=== PATIENT | female | born 1945 | race Caucasian/White ===

== ENCOUNTER 2016-04-21 06:24 | Day surgery (SDC) | payer MEDICARE, OTHER ==
[2016-04-21] MEDS ORDERED: MIDAZOLAM 2 MG/2 ML INJ ONE ×2 (06:42)
[2016-04-21] MEDS ORDERED: FENTANYL CITRATE INJ/PF 100 MCG/2 ML AMPUL ONE (06:42)
[2016-04-21] MEDS ORDERED: ONDANSETRON HCL INJ/PF 4 MG/2 ML SDV ONE (06:43)
[2016-04-21] MEDS ORDERED: SUCCINYLCHOLINE CHLORIDE INJ 200 MG/10 ML VIAL ONE (06:43)
[2016-04-21] MEDS ORDERED: LIDOCAINE 2% INJ-PF (20 MG/ML) 10 ML AMPUL ONE (06:43)
[2016-04-21] MEDS ORDERED: PROPOFOL INJ 200 MG/20 ML VIAL IV ONE (06:43)
[2016-04-21] MEDS ORDERED: LIDOCAINE 2%/EPINEPHRINE INJ 20 ML VIAL ONE (07:14)
[2016-04-21] MEDS ORDERED: BUPIVACAINE HCL 0.75% INJ/PF (7.5 MG/1 ML) 10 ML SDV ONE (07:14)
[2016-04-21] MEDS ORDERED: THROMBIN (BOVINE) TOPICAL 5000 UNIT VIAL ONE (07:15)
[2016-04-21] MEDS ORDERED: TETRACAINE HCL 0.5% OPH SOLN 2 ML ONE (07:15)
[2016-04-21] MEDS ORDERED: TOBRAMYCIN SULFATE/DEXAMETH OPH OINTMENT 3.5 GM ONE (07:15)
[2016-04-21] MEDS ORDERED: POVIDONE-IODINE 5% OPH PREP SOLN 30 ML ONE (07:15)
[2016-04-21] MEDS: NEO/POLYMYX B SULF/DEXAMETH OPH OINTMENT 3.5 GM ONE ×2 (08:18)
--- NOTE | 2016-04-21 08:53 | SURGICARE DISCHARGE SUMMARY E ---
[facility] Discharge Summary NAME: KIERAN US AGE: 70Y ADMITTED: 04/21/2016 DISCHARGED: 05/22/2016 HOSPITAL COURSE: The patient is a 70-year-old lady who underwent uneventful upper eyelid blepharoplasty on 04/21/2016. She will be discharged to home. She is instructed to resume preoperative medications, take Tylenol as needed for discomfort, keep the head of her bed elevated 45 degrees, use the blepharoplasty ice pack 10 minutes out of every hour while awake, and follow up in my office in 1 week. DICTATING PHYSICIAN: STEVE BONILLA M.D. [id number] PHY#: [id number] ID: [id number] JOB#: [id number] ACCT: [id number] cc:STEVE BONILLA M.D. >
--- NOTE | 2016-04-21 08:53 | SURGICARE OPERATIVE REPORT E ---
[facility] Operative Report NAME: KIERAN US AGE: 70Y DATE OF SURGERY: 04/21/2016 ROOM: PREOPERATIVE DIAGNOSIS: Bilateral upper eyelid dermatochalasis with visual field loss. POSTOPERATIVE DIAGNOSIS: Bilateral upper eyelid dermatochalasis with visual field loss. PROCEDURE PERFORMED: Bilateral upper eyelid blepharoplasty. SURGEON: STEVE BONILLA M.D. ANESTHESIA: Local with MAC. INDICATIONS FOR SURGERY: Patient complains of difficulty with her superior vision and having to hold her upper eyelids up to see better, particularly later in the day. PROCEDURE: Patient was brought to the operating room and tetracaine drops placed in the eye. Under monitored anesthesia care, both upper eyelids were sterilely prepped and draped in the usual manner. Attention was directed to the left upper lid where the upper lid crease was marked and 0.3 mm forceps were used to estimate the excess upper eyelid skin to be excised. This was marked in elliptical fashion. An identical procedure was performed on the right upper lid. Local anesthesia was administered. This consisted of 2 mL of 2% Xylocaine with epinephrine mixed with 0.75% Marcaine. This was easily administered under both upper lids in the previously marked sites and diffused using a Q-Tip. Attention was directed to the left upper lid where the elliptical piece of skin was removed. Hemostasis was obtained with bipolar cautery. The orbital septum was opened medially and prolapsed retroseptal fat was grasped with a hemostat, cut, and cauterized. Identical procedure was performed on the right upper lid. Thrombin was placed on both incisions. Wound closure was completed with 3 interrupted 6-0 Silk sutures taking a deep bite of the fascia and a running 6-0 nylon suture to both upper lids. There was good hemostasis and full lid closure at the end of the surgery. Patient tolerated the procedure well and was sent to the recovery room in good condition. DICTATING PHYSICIAN: STEVE BONILLA M.D. [id number] PHY#: [id number] ID: [id number] JOB#: [id number] ACCT: [id number] cc:STEVE BONILLA M.D. > [facility]
== END 2016-04-21 09:21 | disposition home or self-care (01) ==
LOC: SC 06:24
PROVIDERS: ATTEND Ophthalmology
PROC: 080N0ZZ Alteration of Right Upper Eyelid, Open Approach (ICD-10-PCS; 2016-04-21)
PROC: 080P0ZZ Alteration of Left Upper Eyelid, Open Approach (ICD-10-PCS; principal; 2016-04-21 07:30)
DX: H02.834 Dermatochalasis of left upper eyelid (principal); H02.831 Dermatochalasis of right upper eyelid; H53.40 Unspecified visual field defects; I10 Essential (primary) hypertension; E78.2 Mixed hyperlipidemia; E03.9 Hypothyroidism, unspecified; M19.90 Unspecified osteoarthritis, unspecified site; M10.9 Gout, unspecified; Z88.5 Allergy status to narcotic agent; Z91.040 Latex allergy status; Z88.0 Allergy status to penicillin; Z85.828 Personal history of other malignant neoplasm of skin; Z79.82 Long term (current) use of aspirin; Z79.899 Other long term (current) drug therapy
CPT/HCPCS: 15823; J2250; J3490 ×6; J3010; J0330; J2405; J2704; 103

== ENCOUNTER → 2016-06-05 | Outpatient (CLI) | payer MEDICARE, OTHER ==
[2016-06-05 11:20] LABS: ABSOLUTE EOSINOPHILS # (AUTO) 0.1 10^3/uL (0.0-0.6); ABSOLUTE LYMPHOCYTES (AUTO) 1.9 10^3/uL (0.5-4.7); ABSOLUTE MONOCYTES (AUTO) 0.6 10^3/uL (0.1-1.4); ABSOLUTE NEUT (AUTO) 2.8 10^3/uL (1.7-8.2); BASOPHILS % (AUTO) 0.8 % (0-2); EOSINOPHILS % (AUTO) 2.5 % (0-6); HEMATOCRIT 37.2 % (36.0-47.0); HEMOGLOBIN 12.6 g/dL (12.0-15.5); HGB HCT DIFFERENCE 0.6; MEAN CORPUSCULAR HGB CONC 33.9 g/dL (32.0-36.0); MEAN CORPUSCULAR VOLUME 89 fl (80-97); MONOCYTES % (AUTO) 11.4 % (3-13); RED BLOOD COUNT 4.21 10^6/uL (3.72-5.28); RED CELL DISTRIBUTION WIDTH 13.3 % (11.5-14.0); SEGMENTED NEUTROPHILS % (AUTO) 51.3 % (42-78); WHITE BLOOD COUNT 5.5 10^3/uL (4.0-10.5)
[2016-06-05 11:22] LABS: ALANINE AMINOTRANSFERASE 34 U/L (9-52); ALBUMIN 3.9 g/dL (3.5-5.0); ALKALINE PHOSPHATASE 68 U/L (38-126); ANION GAP 9 (5-19); ASPARTATE AMINO TRANSFERASE 22 U/L (14-36); BILIRUBIN,TOTAL 0.6 mg/dL (0.2-1.3); BLOOD UREA NITROGEN 20 mg/dL (7-20); CALCIUM 9.8 mg/dL (8.4-10.2); CARBON DIOXIDE 28 mmol/L (22-30); CHLORIDE 106 mmol/L (98-107); CHOLESTEROL 209.65 mg/dL (0-200); CREATININE RESULT 0.69 mg/dL (0.52-1.25); Direct HDL 47 mg/dL (>40); GLUCOSE 100 mg/dL (75-110); POTASSIUM 4.5 mmol/L (3.6-5.0); SODIUM 143.2 mmol/L (137-145); TOTAL PROTEIN 6.7 g/dL (6.3-8.2); TRIGLYCERIDES 236 mg/dL (<150); URIC ACID 6.5 mg/dL (2.5-7.5)
[2016-06-05 11:33] LABS: DIRECT LDL 113 mg/dL (<100)
[2016-06-05 11:36] LABS: VLDL CHOLESTEROL 47.2 mg/dL (10-31)
[2016-06-05 11:52] LABS: THYROID STIMULATING HORMONE 1.88 uIU/mL (0.47-4.68)
== END ==
LOC: OD 09:23
PROVIDERS: ATTEND Physician Assistant
DX: I10 Essential (primary) hypertension (principal); E79.0 Hyperuricemia without signs of inflammatory arthritis and tophaceous disease; E78.2 Mixed hyperlipidemia; E03.8 Other specified hypothyroidism; E55.9 Vitamin D deficiency, unspecified
CPT/HCPCS: 36415; 80053; 80061; 82306; 84439; 84443; 84550; 85025

== ENCOUNTER → 2016-09-07 | Outpatient (CLI) | payer MEDICARE, OTHER ==
[2016-09-07 13:05] LABS: ALANINE AMINOTRANSFERASE 36 U/L (9-52); ALKALINE PHOSPHATASE 69 U/L (38-126); ANION GAP 10 (5-19); ASPARTATE AMINO TRANSFERASE 28 U/L (14-36); BILIRUBIN,DIRECT 0.3 mg/dL (0.0-0.4); BILIRUBIN,TOTAL 0.6 mg/dL (0.2-1.3); BLOOD UREA NITROGEN 18 mg/dL (7-20); CALCIUM 9.5 mg/dL (8.4-10.2); CARBON DIOXIDE 27 mmol/L (22-30); CHLORIDE 106 mmol/L (98-107); CHOLESTEROL 211.21 mg/dL (0-200); CREATININE RESULT 0.75 mg/dL (0.52-1.25); Direct HDL 52 mg/dL (>40); GLUCOSE 105 mg/dL (75-110); POTASSIUM 4.5 mmol/L (3.6-5.0); SODIUM 142.6 mmol/L (137-145); TOTAL PROTEIN 7.1 g/dL (6.3-8.2); TRIGLYCERIDES 166 mg/dL (<150)
[2016-09-07 13:16] LABS: DIRECT LDL 120 mg/dL (<100); VLDL CHOLESTEROL 33.2 mg/dL (10-31)
== END ==
LOC: OD 11:12
PROVIDERS: ATTEND Internal Medicine
DX: R07.2 Precordial pain (principal); R06.02 Shortness of breath; E78.4 Other hyperlipidemia; I10 Essential (primary) hypertension; Z79.899 Other long term (current) drug therapy; I35.1 Nonrheumatic aortic (valve) insufficiency; M12.9 Arthropathy, unspecified; F32.9 Major depressive disorder, single episode, unspecified; E03.9 Hypothyroidism, unspecified; I35.0 Nonrheumatic aortic (valve) stenosis; R00.2 Palpitations
CPT/HCPCS: 36415; 80053; 80061

== ENCOUNTER → 2016-09-29 | Outpatient (CLI) | payer MEDICARE, OTHER ==
--- NOTE | 2016-09-29 16:44 | WOMENS IMAGING REPORT ---
EXAM DESCRIPTION: 3D SCREENING MAMMO BILAT COMPLETED DATE/TIME: 09/29/2016 8:43 am REASON FOR STUDY: Z12.31, ROUTINE SCREENING MAMMO Z12.31 ENCNTR SCREEN MAMMOGRAM FOR MALIGNANT NEOP LASM OF VIVIANA COMPARISON: None. TECHNIQUE: Standard craniocaudal and mediolateral oblique views of each breast recorded using digita l acquisition and breast tomosynthesis. LIMITATIONS: None. FINDINGS: No masses, calcifications or architectural distortion. No areas of suspicion. Read with the assistance of CAD. .[facility] - R2 Cenova Version 1.3 .[facility] Imaging - R2 Cenova Version 1.3 .[facility] - R2 Cenova Version 2.4 .[facility] - R2 Cenova Version 2.4 .[facility] - R2 Bed Operator Version 9.2 IMPRESSION: NORMAL MAMMOGRAM. BIRADS 1. BREAST DENSITY: b. There are scattered areas of fibroglandular density. BIRAD: 1 NEGATIVE RECOMMENDATION: ROUTINE SCREENING Please continue yearly bilateral screening tomosynthesis in September 2017 COMMENT: The patient has been notified of the results by letter per SA requirements. Additional no tification policies are in place for contacting patient with suspicious or incomplete findings. Quality ID #[id number]: The [employer] recommends an annual screening mammogram for women aged 40 years or over. This facility utilizes a reminder system to ensure that all patients receive reminder letters, and/or direct phone calls for appointments. This includes reminders for routine scr eening mammograms, diagnostic mammograms, or other Breast Imaging Interventions when appropriate. Th is patient will be placed in the appropriate reminder system. The [employer] (ACR) has developed recommendations for screening MRI of the breast s in certain patient populations, to be used in conjunction with mammography. Breast MRI surveillanc e may be appropriate for women with more than 20% lifetime risk of developing breast cancer as deter mined by genetic testing, significant family history of the disease, or history of mantle radiation f or Hodgkins Disease. ACR Practice Guidelines 2008. DBT Technology DBT is a type of tomographic mammography. With conventional mammography, overlapping breast tissue ma y make lesions difficult to detect, even with good compression. DBT uses an x-ray tube that rotates a round the breast, taking images at different angles. These images are then combined to create thin sl ices of the breast that the radiologist can view as a 3D reconstruction. The Sunnova unit can perform full-field digital mammograms (2D imaging); or DBT (3D imaging); or both, in a combination mode that quickly performs both the mammogram and the tomosynthesis scan while the breast is still compressed. PQRS 6045F: Fluoroscopic imaging is not utilized for breast tomosynthesis. TECHNICAL DOCUMENTATION: FINDING NUMBER: (1) ASSESSMENT: (1) JOB ID: [id number] [employer]- All Rights Reserved
== END ==
LOC: WI 09:21
PROVIDERS: ATTEND Internal Medicine
DX: Z12.31 Encounter for screening mammogram for malignant neoplasm of breast (principal)
CPT/HCPCS: 77063; G0202; 77067

== ENCOUNTER → 2017-01-31 | Outpatient (CLI) | payer MEDICARE, OTHER ==
[2017-01-31 08:18] LABS: CHOLESTEROL 218.44 mg/dL (0-200); Direct HDL 43 mg/dL (>40); TRIGLYCERIDES 263 mg/dL (<150)
[2017-01-31 08:30] LABS: DIRECT LDL 142 mg/dL (<100)
[2017-01-31 08:34] LABS: VLDL CHOLESTEROL 52.6 mg/dL (10-31)
[2017-01-31 08:45] LABS: THYROID STIMULATING HORMONE 2.89 uIU/mL (0.47-4.68)
[2017-01-31 12:10] LABS: ALANINE AMINOTRANSFERASE 37 U/L (9-52); ALBUMIN 4.3 g/dL (3.5-5.0); ALKALINE PHOSPHATASE 68 U/L (38-126); ANION GAP 13 (5-19); ASPARTATE AMINO TRANSFERASE 21 U/L (14-36); BILIRUBIN,DIRECT 0.4 mg/dL (0.0-0.4); BILIRUBIN,TOTAL 0.5 mg/dL (0.2-1.3); BLOOD UREA NITROGEN 19 mg/dL (7-20); CALCIUM 9.7 mg/dL (8.4-10.2); CARBON DIOXIDE 28 mmol/L (22-30); CHLORIDE 105 mmol/L (98-107); CREATININE RESULT 0.78 mg/dL (0.52-1.25); GLUCOSE 92 mg/dL (75-110); POTASSIUM 4.1 mmol/L (3.6-5.0); SODIUM 145.9 mmol/L (137-145); TOTAL PROTEIN 7.1 g/dL (6.3-8.2); URIC ACID 5.8 mg/dL (2.5-7.5)
== END ==
LOC: OD 07:23
PROVIDERS: ATTEND Internal Medicine
DX: I10 Essential (primary) hypertension (principal); E79.0 Hyperuricemia without signs of inflammatory arthritis and tophaceous disease; E78.2 Mixed hyperlipidemia; E03.8 Other specified hypothyroidism
CPT/HCPCS: 36415; 80053; 80061; 84439; 84443; 84550

== ENCOUNTER → 2017-04-11 | Outpatient (CLI) | payer MEDICARE ==
[2017-04-11 08:49] LABS: ALANINE AMINOTRANSFERASE 33 U/L (9-52); ALBUMIN 4.1 g/dL (3.5-5.0); ALKALINE PHOSPHATASE 64 U/L (38-126); ASPARTATE AMINO TRANSFERASE 19 U/L (14-36); BILIRUBIN,DIRECT 0.2 mg/dL (0.0-0.4); BILIRUBIN,TOTAL 0.5 mg/dL (0.2-1.3); CHOLESTEROL 209.37 mg/dL (0-200); TOTAL PROTEIN 6.8 g/dL (6.3-8.2); TRIGLYCERIDES 257 mg/dL (<150)
[2017-04-11 08:59] LABS: DIRECT LDL 116 mg/dL (<100)
[2017-04-11 09:03] LABS: VLDL CHOLESTEROL 51.4 mg/dL (10-31)
[2017-04-11 16:35] LABS: ANION GAP 9 (5-19); BLOOD UREA NITROGEN 17 mg/dL (7-20); CALCIUM 9.9 mg/dL (8.4-10.2); CARBON DIOXIDE 29 mmol/L (22-30); CHLORIDE 103 mmol/L (98-107); GLUCOSE 97 mg/dL (75-110); SODIUM 140.8 mmol/L (137-145)
[2017-04-11 16:37] LABS: ALBUMIN 4.1 g/dL (3.5-5.0); ASPARTATE AMINO TRANSFERASE 19 U/L (14-36)
[2017-04-11 16:38] LABS: ALANINE AMINOTRANSFERASE 33 U/L (9-52); ALKALINE PHOSPHATASE 64 U/L (38-126); BILIRUBIN,DIRECT 0.2 mg/dL (0.0-0.4); BILIRUBIN,TOTAL 0.5 mg/dL (0.2-1.3); TOTAL PROTEIN 6.8 g/dL (6.3-8.2)
== END ==
LOC: OD 07:34
PROVIDERS: ATTEND Specialist
DX: R00.2 Palpitations (principal); R06.02 Shortness of breath; E78.4 Other hyperlipidemia; I10 Essential (primary) hypertension; I35.1 Nonrheumatic aortic (valve) insufficiency; M12.9 Arthropathy, unspecified; F32.9 Major depressive disorder, single episode, unspecified; E03.9 Hypothyroidism, unspecified; I35.0 Nonrheumatic aortic (valve) stenosis; R06.00 Dyspnea, unspecified; I48.0 Paroxysmal atrial fibrillation; Z79.899 Other long term (current) drug therapy
CPT/HCPCS: 36415; 80053; 80061; 80076

== ENCOUNTER → 2017-08-31 | Outpatient (CLI) | payer MEDICARE ==
[2017-08-31 09:04] LABS: ABSOLUTE EOSINOPHILS # (AUTO) 0.1 10^3/uL (0.0-0.6); ABSOLUTE MONOCYTES (AUTO) 0.6 10^3/uL (0.1-1.4); BASOPHILS % (AUTO) 0.7 % (0-2); EOSINOPHILS % (AUTO) 2.3 % (0-6); HEMATOCRIT 37.7 % (36.0-47.0); HEMOGLOBIN 12.8 g/dL (12.0-15.5); LYMPHOCYTES % (AUTO) 34.8 % (13-45); MEAN CORPUSCULAR HEMOGLOBIN 30.1 pg (27.0-33.4); MEAN CORPUSCULAR HGB CONC 34.1 g/dL (32.0-36.0); MEAN CORPUSCULAR VOLUME 88 fl (80-97); MONOCYTES % (AUTO) 10.6 % (3-13); PLATELET COUNT 240 10^3/uL (150-450); RED BLOOD COUNT 4.26 10^6/uL (3.72-5.28); SEGMENTED NEUTROPHILS % (AUTO) 51.6 % (42-78); TOTAL CELLS COUNTED % (AUTO) 100 %; WHITE BLOOD COUNT 5.8 10^3/uL (4.0-10.5)
[2017-08-31 09:26] LABS: ALANINE AMINOTRANSFERASE 31 U/L (9-52); ALBUMIN 3.9 g/dL (3.5-5.0); ALKALINE PHOSPHATASE 66 U/L (38-126); ANION GAP 11 (5-19); ASPARTATE AMINO TRANSFERASE 22 U/L (14-36); BILIRUBIN,DIRECT 0.3 mg/dL (0.0-0.4); BILIRUBIN,TOTAL 0.4 mg/dL (0.2-1.3); BLOOD UREA NITROGEN 19 mg/dL (7-20); CALCIUM 9.7 mg/dL (8.4-10.2); CARBON DIOXIDE 28 mmol/L (22-30); CHLORIDE 107 mmol/L (98-107); CHOLESTEROL 213.33 mg/dL (0-200); GLUCOSE 99 mg/dL (75-110); SODIUM 146.3 mmol/L (137-145); TOTAL PROTEIN 6.9 g/dL (6.3-8.2); TRIGLYCERIDES 257 mg/dL (<150); URIC ACID 6.2 mg/dL (2.5-7.5)
[2017-08-31 09:36] LABS: DIRECT LDL 115 mg/dL (<100)
[2017-08-31 09:39] LABS: VLDL CHOLESTEROL 51.4 mg/dL (10-31)
[2017-08-31 09:40] LABS: FREE T4 (FREE THYROXINE) 1.29 ng/dL (0.78-2.19)
[2017-08-31 09:54] LABS: THYROID STIMULATING HORMONE 2.34 uIU/mL (0.47-4.68)
== END ==
LOC: OD 07:44
PROVIDERS: ATTEND Internal Medicine
DX: E03.8 Other specified hypothyroidism (principal); R53.83 Other fatigue; E78.2 Mixed hyperlipidemia; E79.0 Hyperuricemia without signs of inflammatory arthritis and tophaceous disease; I10 Essential (primary) hypertension
CPT/HCPCS: 36415; 80053; 80061; 84439; 84443; 84550; 85025

== ENCOUNTER → 2017-09-17 | Outpatient (CLI) | payer MEDICARE ==
[2017-09-17 11:56] LABS: ALANINE AMINOTRANSFERASE 31 U/L (9-52); ALBUMIN 4.3 g/dL (3.5-5.0); ALKALINE PHOSPHATASE 67 U/L (38-126); ASPARTATE AMINO TRANSFERASE 21 U/L (14-36); BILIRUBIN,DIRECT 0.3 mg/dL (0.0-0.4); BILIRUBIN,TOTAL 0.6 mg/dL (0.2-1.3); CHOLESTEROL 208.26 mg/dL (0-200); TRIGLYCERIDES 203 mg/dL (<150)
[2017-09-17 12:08] LABS: DIRECT LDL 120 mg/dL (<100); VLDL CHOLESTEROL 40.6 mg/dL (10-31)
== END ==
LOC: OD 10:52
PROVIDERS: ATTEND Internal Medicine
DX: I10 Essential (primary) hypertension (principal); E78.4 Other hyperlipidemia; I35.0 Nonrheumatic aortic (valve) stenosis; I35.1 Nonrheumatic aortic (valve) insufficiency; E03.9 Hypothyroidism, unspecified; M12.9 Arthropathy, unspecified; F32.9 Major depressive disorder, single episode, unspecified; R00.2 Palpitations; I48.0 Paroxysmal atrial fibrillation; Z79.899 Other long term (current) drug therapy
CPT/HCPCS: 36415; 80061; 80076

== ENCOUNTER → 2017-10-02 | Outpatient (CLI) | payer MEDICARE, OTHER ==
--- NOTE | 2017-10-03 14:52 | WOMENS IMAGING REPORT ---
EXAM DESCRIPTION: 3D SCREENING MAMMO BILAT COMPLETED DATE/TIME: 10/02/2017 8:36 am REASON FOR STUDY: BILATERAL SCREENING MAMMO 3D/Z12.31 Z12.31 ENCNTR SCREEN MAMMOGRAM FOR MALIGNANT NEOPLASM OF VIVIANA COMPARISON: 09/29/2016 TECHNIQUE: Standard craniocaudal and mediolateral oblique views of each breast recorded using digita l acquisition and breast tomosynthesis. LIMITATIONS: None. FINDINGS: No masses, calcifications or architectural distortion. No areas of suspicion. Read with the assistance of CAD. .[facility] - R2 Cenova Version 1.3 .[facility] Imaging - R2 Cenova Version 1.3 .[facility] - R2 Cenova Version 2.4 .[facility] [place] R2 Cenova Version 2.4 .[facility] - R2 Financial Analyst Intern Version 9.2 IMPRESSION: NORMAL MAMMOGRAM. BIRADS 1. BREAST DENSITY: b. There are scattered areas of fibroglandular density. BIRAD: 1 NEGATIVE RECOMMENDATION: ROUTINE SCREENING Please continue yearly bilateral screening tomosynthesis in September 2018 COMMENT: The patient has been notified of the results by letter per SA requirements. Additional no tification policies are in place for contacting patient with suspicious or incomplete findings. Quality ID #[id number]: The [employer] recommends an annual screening mammogram for women aged 40 years or over. This facility utilizes a reminder system to ensure that all patients receive reminder letters, and/or direct phone calls for appointments. This includes reminders for routine scr eening mammograms, diagnostic mammograms, or other Breast Imaging Interventions when appropriate. Th is patient will be placed in the appropriate reminder system. The [employer] (ACR) has developed recommendations for screening MRI of the breast s in certain patient populations, to be used in conjunction with mammography. Breast MRI surveillanc e may be appropriate for women with more than 20% lifetime risk of developing breast cancer as deter mined by genetic testing, significant family history of the disease, or history of mantle radiation f or Hodgkins Disease. ACR Practice Guidelines 2008. DBT Technology DBT is a type of tomographic mammography. With conventional mammography, overlapping breast tissue ma y make lesions difficult to detect, even with good compression. DBT uses an x-ray tube that rotates a round the breast, taking images at different angles. These images are then combined to create thin sl ices of the breast that the radiologist can view as a 3D reconstruction. The Davia unit can perform full-field digital mammograms (2D imaging); or DBT (3D imaging); or both, in a combination mode that quickly performs both the mammogram and the tomosynthesis scan while the breast is still compressed. PQRS 6045F: Fluoroscopic imaging is not utilized for breast tomosynthesis. TECHNICAL DOCUMENTATION: FINDING NUMBER: (1) ASSESSMENT: (1) JOB ID: [id number] [employer]- All Rights Reserved Reading location - IP/workstation name: [facility]
== END ==
LOC: WI 08:19
PROVIDERS: ATTEND Internal Medicine
DX: Z12.31 Encounter for screening mammogram for malignant neoplasm of breast (principal)
CPT/HCPCS: 77063; 77067

== ENCOUNTER 2017-10-21 12:20 | Inpatient (IN) | payer MEDICARE ==
[2017-10-21] MEDS ORDERED: APIXABAN 5 MG TABLET PO ONE (12:42)
[2017-10-21] MEDS ORDERED: ASPIRIN 81 MG TABLET, CHEWABLE PO ONE (12:42)
[2017-10-21 12:59] LABS: ALANINE AMINOTRANSFERASE 33 U/L (9-52); ALBUMIN 4.2 g/dL (3.5-5.0); ALKALINE PHOSPHATASE 76 U/L (38-126); ANION GAP 15 (5-19); ASPARTATE AMINO TRANSFERASE 27 U/L (14-36); BILIRUBIN,DIRECT 0.2 mg/dL (0.0-0.4); BILIRUBIN,TOTAL 0.5 mg/dL (0.2-1.3); BLOOD UREA NITROGEN 17 mg/dL (7-20); CALCIUM 9.9 mg/dL (8.4-10.2); CARBON DIOXIDE 24 mmol/L (22-30); CHLORIDE 104 mmol/L (98-107); CREATINE KINASE 58 U/L (30-135); GLUCOSE 120 mg/dL (75-110); POTASSIUM 3.7 mmol/L (3.6-5.0); TOTAL PROTEIN 7.5 g/dL (6.3-8.2)
[2017-10-21 13:04] LABS: HEMATOCRIT 40.5 % (36.0-47.0); HEMOGLOBIN 13.8 g/dL (12.0-15.5); RED BLOOD COUNT 4.59 10^6/uL (3.72-5.28); WHITE BLOOD COUNT 9.2 10^3/uL (4.0-10.5)
[2017-10-21 13:05] LABS: ABSOLUTE EOSINOPHILS # (AUTO) 0.2 10^3/uL (0.0-0.6); ABSOLUTE LYMPHOCYTES (AUTO) 3.4 10^3/uL (0.5-4.7); ABSOLUTE MONOCYTES (AUTO) 1.2 10^3/uL (0.1-1.4); ABSOLUTE NEUT (AUTO) 4.4 10^3/uL (1.7-8.2); BASOPHILS % (AUTO) 0.5 % (0-2); EOSINOPHILS % (AUTO) 1.6 % (0-6); LYMPHOCYTES % (AUTO) 36.7 % (13-45); MEAN CORPUSCULAR HEMOGLOBIN 30.1 pg (27.0-33.4); MEAN CORPUSCULAR HGB CONC 34.2 g/dL (32.0-36.0); MEAN CORPUSCULAR VOLUME 88 fl (80-97); MONOCYTES % (AUTO) 13.6 % (3-13); PLATELET COUNT 252 10^3/uL (150-450); RED CELL DISTRIBUTION WIDTH 13.5 % (11.5-14.0); SEGMENTED NEUTROPHILS % (AUTO) 47.6 % (42-78); TOTAL CELLS COUNTED % (AUTO) 100 %
[2017-10-21 13:12] LABS: TROPONIN I < 0.012 ng/mL
[2017-10-21 13:13] LABS: INTERNATIONAL RATION (INR) 0.92; PROTHROMBIN TIME 12.8 SEC (11.4-15.4)
--- NOTE | 2017-10-21 13:33 | RADIOLOGY REPORT (SQ) ---
EXAM DESCRIPTION: CHEST SINGLE VIEW COMPLETED DATE/TIME: 10/21/2017 1:17 pm REASON FOR STUDY: chest pain COMPARISON: 2010. NUMBER OF VIEWS: One view. TECHNIQUE: Single frontal radiographic view of the chest acquired. LIMITATIONS: None. FINDINGS: LUNGS AND PLEURA: No opacities, masses or pneumothorax. No pleural effusion. MEDIASTINUM AND HILAR STRUCTURES: No masses. Contour normal. HEART AND VASCULAR STRUCTURES: Heart normal in size. Normal vasculature. BONES: No acute findings. HARDWARE: None in the chest. OTHER: No other significant finding. IMPRESSION: NO SIGNIFICANT RADIOGRAPHIC FINDING IN THE CHEST. TECHNICAL DOCUMENTATION: JOB ID: [id number] [email or web address]- All Rights Reserved Reading location - IP/workstation name: [email or web address]
--- NOTE | 2017-10-21 14:18 | ER Document Report ---
ED Dizziness/Weakness - General Chief Complaint: Arrhythmia Stated Complaint: PALPITATIONS Time Seen by Provider: 10/21/17 12:40 Mode of Arrival: Ambulatory Information source: Patient Notes: Chief complaint: Chest pain History of complain:( obtained from----patient) 72 years old female with a history of aortic stenosis, hypertension, hypothyroidism,. Presents today since this morning was feeling a little dizzy lightheaded and on and off palpitation. Just prior to arrival while she was in [employer] started having substernal chest pain and a rapid heartbeat which caused her more dizziness. Therefore called the EMS and brought to the ED. Denies any left arm numbness tingling sensation. Denies any nausea vomiting. No fever chills or other constitutional symptoms. Onset: Gradual Duration: Since this morning Severity: Moderate Quality: Diarrhea Context: Unknown Exacerbating factor and relieving factors: Exertion REVIEW OF SYSTEMS: CONSTITUTIONAL : Denies fever, chills, or sweats. Denies recent illness. EENT: Denies eye, ear, throat, or mouth pain or symptoms. Denies nasal or sinus congestion or discharge. Denies throat, tongue, or mouth swelling or difficulty swallowing. CARDIOVASCULAR: Denies chest pain. Denies palpitations or racing or irregular heart beat. Denies ankle edema. RESPIRATORY: Denies cough, cold, or chest congestion. Denies shortness of breath, difficulty breathing, or wheezing. GASTROINTESTINAL: Denies distention. Denies nausea, vomiting, or diarrhea. Denies blood in vomitus, stools, or per rectum. Denies black, tarry stools. Denies constipation. GENITOURINARY: Denies difficulty urinating, painful urination, burning, frequency, blood in urine, or discharge. FEMALE GENITOURINARY: Denies vaginal bleeding, heavy or abnormal periods, irregular periods. Denies vaginal discharge or odor. MUSCULOSKELETAL: Denies back or neck pain or stiffness. Denies joint pain or swelling. SKIN: Denies rash, lesions or sores. HEMATOLOGIC : Denies easy bruising or bleeding. LYMPHATIC: Denies swollen, enlarged glands. NEUROLOGICAL: Denies confusion or altered mental status. Denies passing out or loss of consciousness. Denies dizziness or lightheadedness. Denies headache. Denies weakness or paralysis or loss of use of either side. Denies problems with gait or speech. Denies sensory loss, numbness, or tingling. Denies seizures. PSYCHIATRIC: Denies anxiety or stress. Denies depression, suicidal ideation, or homicidal ideation. ALL OTHER SYSTEMS REVIEWED AND NEGATIVE. PHYSICAL EXAMINATION: GENERAL: Well-appearing, well-nourished and in no acute distress. Morbid obesity HEAD: Atraumatic, normocephalic. EYES: Pupils equal round and reactive to light, extraocular movements intact, conjunctiva are normal. ENT: Nares patent, oropharynx clear without exudates. Moist mucous membranes. NECK: Normal range of motion, supple without lymphadenopathy LUNGS: Breath sounds clear to auscultation bilaterally and equal. No wheezes rales or rhonchi. HEART: Regular rate and rhythm, aortic systolic murmurs ABDOMEN: Soft, nontender, nondistended abdomen. No guarding, no rebound. No masses appreciated. Examination of genitals-deferred Musculoskeletal: Normal range of motion, no pitting or edema. No cyanosis. NEUROLOGICAL: Cranial nerves grossly intact. Normal speech, normal gait. Normal sensory, motor exams PSYCH: Normal mood, normal affect. SKIN: Warm, Dry, normal turgor, no rashes or lesions noted. Dictation was performed using [employer] voice recognition software TRAVEL OUTSIDE OF THE [place] IN LAST 30 DAYS: No - HPI Notes: Dictated - Related Data Allergies/Adverse Reactions: latex Allergy (Intermediate, Verified 10/21/17 12:33) Hives adhesive tape [Adhesive Tape] Allergy (Verified 10/21/17 12:33) Hives oxycodone HCl [From Percocet] Allergy (Verified 10/21/17 12:33) Generalized Itching amoxicillin Adverse Reaction (Verified 10/21/17 12:33) Hives Past Medical History - Social History Smoking Status: Never Smoker Frequency of alcohol use: None Drug Abuse: None Lives with: Spouse/Significant other Family History: Reviewed & Not Pertinent Patient has suicidal ideation: No Patient has homicidal ideation: No - Past Medical History Cardiac Medical History: Reports: Hx Hypertension - medicated Denies: Hx Heart Attack Pulmonary Medical History: Denies: Hx Asthma Neurological Medical History: Denies: Hx Cerebrovascular Accident, Hx Seizures Renal/ Medical History: Denies: Hx Peritoneal Dialysis GI Medical History: Denies: Hx Hepatitis, Hx Hiatal Hernia, Hx Ulcer Infectious Medical History: Denies: Hx Hepatitis Past Surgical History: Denies: Hx Hysterectomy, Hx Mastectomy, Hx Open Heart Surgery, Hx Pacemaker Review of Systems - Review of Systems Notes: Dictated Physical Exam - Vital signs Vitals: Resp BP Pulse Ox 20 133/75 H 97 10/21/17 12:27 10/21/17 12:27 10/21/17 12:27 - Notes Notes: Dictated Course - Re-evaluation Re-evalutation: 10/21/17 14:45 Case was discussed with hospitalist - Vital Signs Vital signs: Temp Pulse Resp BP Pulse Ox 98.2 F 74 18 112/61 97 10/22/17 07:40 10/22/17 07:40 10/22/17 07:40 10/22/17 07:40 10/22/17 07:40 - Laboratory Result Diagrams: 10/22/17 03:45 10/22/17 03:45 Laboratory results interpreted by me: 10/21/17 10/21/17 12:25 12:25 Monocytes % 13.6 H Glucose 120 H - Diagnostic Test Radiology reviewed: Reports reviewed - Chest x-ray was reported by radiologist as normal - EKG Interpretation by Me Rhythm: A.Fib - Atrial fibrillation at 102 bpm normal axis no acute ST elevation ST depression T-wave inversion. Discharge - Discharge Clinical Impression: New onset atrial fibrillation, Chest pain, rule out acute myocardial infarction Condition: Fair Disposition: ADMITTED INPATIENT Admitting Provider: Hospitalist Unit Admitted: Telemetry
[2017-10-21] MEDS ORDERED: ATENOLOL 50 MG TABLET PO ONE (14:41)
[2017-10-21] MEDS ORDERED: ACETAMINOPHEN 325 MG TABLET PO PRN (15:19)
[2017-10-21] MEDS ORDERED: ONDANSETRON 4 MG TAB.RAPDIS PO PRN (15:19)
--- NOTE | 2017-10-21 15:47 | PDOC H&P ---
History of Present Illness Admission Date/PCP: 10/21/17 15:23 SHADI POOLE MD History of Present Illness: KIERAN US is a 72 year old female patient with past medical history of aortic stenosis, hypertension, hyperlipidemia, hypothyroidism and gout, presents with chief complaint of chest pain. Patient states she has been in her usual baseline state of up until this morning while she was attending amish ceremony started to have sudden onset chest pain described as substernal tightness which is nonradiating and about 7 out of 10 on pain scale. She has associated palpitation but she denied any shortness of breath or diaphoresis. At ER her EKG revealed atrial fibrillation with heart rate of 102. When I see her her heart rate is 97. Patient denies any chills, fever, cough, nausea, vomiting, abdominal pain, diarrhea or urinary complaints. She endorses dizziness but no syncope, blurring of vision or any seizure activity. RADHA- VASC score is 3 so patient qualifies for anticoagulation. Past Medical History Cardiac Medical History: Reports: Hypertension - medicated Denies: Myocardial Infarction Pulmonary Medical History: Denies: Asthma Neurological Medical History: Denies: Seizures GI Medical History: Denies: Hepatitis, Hiatal Hernia Hematology: Denies: Anemia, Sickle Cell Disease Past Surgical History Past Surgical History: Denies: Amputation, Hysterectomy, Mastectomy, Pacemaker Social History Lives with: Spouse/Significant other Smoking Status: Never Smoker Frequency of Alcohol Use: None Hx Recreational Drug Use: No Drugs: None - Advance Directive Resuscitation Status: Full Code Family History Family History: Arthritis, Hypertension Parental Family History Reviewed: Yes Children Family History Reviewed: Yes Sibling(s) Family History Reviewed.: Yes Medication/Allergy Allergies/Adverse Reactions: latex Allergy (Intermediate, Verified 10/21/17 12:33) Hives adhesive tape [Adhesive Tape] Allergy (Verified 10/21/17 12:33) Hives oxycodone HCl [From Percocet] Allergy (Verified 10/21/17 12:33) Generalized Itching amoxicillin Adverse Reaction (Verified 10/21/17 12:33) Hives Review of Systems Constitutional: PRESENT: as per HPI Cardiovascular: PRESENT: as per HPI Respiratory: PRESENT: as per HPI Gastrointestinal: PRESENT: as per HPI Musculoskeletal: PRESENT: as per HPI Neurological: PRESENT: as per HPI Psychiatric: PRESENT: as per HPI Physical Exam Vital Signs: Temp Pulse Resp BP Pulse Ox 98.3 F 16 126/76 H 97 10/21/17 12:32 10/21/17 13:01 10/21/17 14:01 10/21/17 14:01 General appearance: PRESENT: no acute distress, well-developed, well-nourished Head exam: PRESENT: atraumatic, normocephalic Eye exam: PRESENT: conjunctiva pink Mouth exam: PRESENT: moist Neck exam: ABSENT: carotid bruit, JVD, lymphadenopathy, thyromegaly Respiratory exam: PRESENT: clear to auscultation merle. ABSENT: rales, rhonchi, wheezes Cardiovascular exam: PRESENT: irregular rhythm, systolic murmur - Grade 3/6 ejection systolic murmur radiating to her neck GI/Abdominal exam: PRESENT: normal bowel sounds, soft. ABSENT: distended, guarding, mass, organolmegaly, rebound, tenderness Extremities exam: PRESENT: full ROM. ABSENT: calf tenderness, clubbing, pedal edema Neurological exam: PRESENT: alert, awake, oriented to time, oriented to situation Psychiatric exam: PRESENT: normal mood Results Impressions: Chest X-Ray 10/21/17 12:42 IMPRESSION: NO SIGNIFICANT RADIOGRAPHIC FINDING IN THE CHEST. Assessment & Plan - Diagnosis (1) Chest pain Qualifiers: Chest pain type: other chest pain Qualified Code(s): R07.89 - Other chest pain; R07.8 - Other chest pain Is this a current diagnosis for this admission?: Yes Plan: Since patient multiple risk factor for acute coronary syndrome, patient is going to be admitted and we will cycle her cardiac exam repeat her EKG and she will have cardiac stress test in a.m. (2) New onset atrial fibrillation Is this a current diagnosis for this admission?: Yes Plan: Currently rate is controlled. Patient has been started on Eliquis. Cardizem 30 mg p.o. every 6 hours. (3) Hypertension Qualifiers: Hypertension type: essential hypertension Qualified Code(s): I10 - Essential (primary) hypertension Is this a current diagnosis for this admission?: Yes Plan: Continue home medication (4) Hyperlipidemia Qualifiers: Hyperlipidemia type: unspecified Qualified Code(s): E78.5 - Hyperlipidemia , unspecified Is this a current diagnosis for this admission?: Yes Plan: Lipitor 40 mg p.o. nightly (5) Gout Is this a current diagnosis for this admission?: Yes Plan: Patient has been on allopurinol. (6) Aortic stenosis Qualifiers: Cardiac valve disease etiology: etiology unspecified Qualified Code(s): I35.0 - Nonrheumatic aortic (valve) stenosis Is this a current diagnosis for this admission?: Yes Plan: Continue follow-up with her primary jar capper.
[2017-10-21] MEDS: APIXABAN 5 MG TABLET PO SCH (19:20)
--- NOTE | 2017-10-21 19:32 | PDOC CONSULTATION ---
Consultation Consult Date: 10/21/17 Attending physician:: JERRY NÚÑEZ Consult reason:: Atrial fibrillation with RVR and chest pain History of Present Illness Admission Date/PCP: 10/21/17 15:23 SHADI POOLE MD Patient complains of: Palpitations and chest pain History of Present Illness: KIERAN US is a 72 year old female patient with past medical history of aortic stenosis, hypertension, hyperlipidemia, hypothyroidism and gout, presents with chief complaint of chest pain. Patient states she has been in her usual baseline state of up until this morning while she was attending christian ceremony started to have sudden onset chest pain described as substernal tightness which is nonradiating and about 7 out of 10 on pain scale. She has associated palpitation but she denied any shortness of breath or diaphoresis. At ER her EKG revealed atrial fibrillation with heart rate of 102. When I see her her heart rate is 97. Patient denies any chills, fever, cough, nausea, vomiting, abdominal pain, diarrhea or urinary complaints. She endorses dizziness but no syncope, blurring of vision or any seizure activity. RADHA- VASC score is 3 so patient qualifies for anticoagulation. Patient however denied any prior history of myocardial infarction, angina or congestive heart failure. Past Medical History Cardiac Medical History: Reports: Hypertension - medicated Denies: Myocardial Infarction Pulmonary Medical History: Denies: Asthma Neurological Medical History: Denies: Seizures GI Medical History: Denies: Hepatitis, Hiatal Hernia Hematology: Denies: Anemia, Sickle Cell Disease Past Surgical History Past Surgical History: Denies: Amputation, Hysterectomy, Mastectomy, Pacemaker Social History Information Source: Patient Lives with: Spouse/Significant other Smoking Status: Never Smoker Frequency of Alcohol Use: None Hx Recreational Drug Use: No Drugs: None - Advance Directive Resuscitation Status: Full Code Surrogate healthcare decision maker:: Patient's is the surrogate decision-maker Family History Family History: Arthritis, Hypertension Parental Family History Reviewed: Yes Children Family History Reviewed: Yes Sibling(s) Family History Reviewed.: Yes Medication/Allergy Home Medications: Aspirin [Adult Low Dose Aspirin EC] 81 mg PO QHS 10/21/17 Chlorthalidone [Chlorthalidone 25 mg Tablet] 12.5 mg PO QAM 10/21/17 Ezetimibe [Zetia 10 mg Tablet] 10 mg PO QHS 10/21/17 Levothyroxine Sodium [Synthroid] 88 mcg PO Q6AM 10/21/17 Lisinopril [Zestril] 10 mg PO QHS 10/21/17 Rosuvastatin Calcium [Crestor 5 mg Tablet] 5 mg PO QHS 10/21/17 Allergies/Adverse Reactions: latex Allergy (Intermediate, Verified 10/21/17 12:33) Hives adhesive tape [Adhesive Tape] Allergy (Verified 10/21/17 12:33) Hives oxycodone HCl [From Percocet] Allergy (Verified 10/21/17 12:33) Generalized Itching amoxicillin Adverse Reaction (Verified 10/21/17 12:33) Hives Review of Systems Review of Systems: Please see history of present illness and past medical history as wall. Constitutional: No fever or chills reported. Head : No recent chronic headaches, recent head injury. Eyes: No recent eye pain, diplopia, redness, discharge, acute visual changes. Ears: No recent chronic ear pain, acute hearing loss, ear discharge. Oral cavity: No recent ulcerations, bleeding, oral cavity discomfort. Neck: No recent acute neck pain reported. Hematologic: No recent easy bruising or bleeding. Lymphatic: No recent lymph node enlargement reported. Cardiovascular system review: See history of present illness. History of heart murmur. Respiratory system review: No hemoptysis or blood clots in the lungs reported. Mild Shortness of breath on exertion Gastrointestinal system review: Negative for any recent acute hematemesis, melena. Genitourinary system review: No recent acute or chronic hematuria, flank pain, UTI etc. reported. Skin system review: Negative for any recent abnormal bruising, no rash, no pruritus reported. Neurologic: No prior history of strokes, mini strokes, seizure disorder. Psychologic: No history of major psychosis or major depression reported. Musculoskeletal: Minor aches and pains reported. No acute joint swelling reported. Endocrine: No recent polyuria, polydipsia, recent heat or cold intolerance. Physical Exam Vital Signs: Temp Pulse Resp BP Pulse Ox 98.1 F 16 113/85 96 10/21/17 18:41 10/21/17 18:01 10/21/17 18:01 10/21/17 18:01 Exam: GENERAL: well-nourished and in no acute distress. Alert and oriented x3 HEAD: Atraumatic, normocephalic. EYES: Pupils equal round and reactive to light, extraocular movements intact, sclera anicteric, conjunctiva are normal. ENT: TMs normal, nares patent, oropharynx clear without exudates. Moist mucous membranes. No oral ulcerations or bleeding gums noted NECK: supple without lymphadenopathy. Trachea is central. No cervical or axillary lymphadenopathy noted. Carotids are 2+, JVD WNL LUNGS: Respiration seems nonlabored, no significant accessory muscle action noted. Breath sounds clear to auscultation bilaterally and equal noted. No wheezes rales or rhonchi noted. No significant dullness noted on percussion. CHEST: Palpation of the chest wall shows no significant chest wall tenderness. HEART: [place] BOB[place] HAULER, No PSH, 2-3/6 LEON aortic area, 1/6 [place] systolic murmur mitral area, no rubs, no gallops. ABDOMEN: Soft, no significant tenderness appreciated, normoactive bowel sounds. No guarding, no rebound. No rigidity noted . No masses appreciated. EXTREMITIES: Pedal pulses are 1-2+, no calf tenderness noted. No clubbing or cyanosis. negative pedal edema noted NEUROLOGICAL: Focused neurological exam showed no significant neurologic deficit. Normal speech, no focal weakness appreciated. PSYCH: Normal mood, normal affect. Judgment and insight within normal limits. SKIN: No significant ecchymosis, skin is noted to be warm. MUSCULOSKELETAL EXAM: No significant acute joint swelling noted. Results Laboratory Results: 10/21/17 16:00 Troponin I 0.024 EKG Comments: Twelve-lead EKG in the ER and reviewed shows atrial fibrillation with RVR, no significant acute ST-T wave changes noted. Impressions: Chest X-Ray 10/21/17 12:42 IMPRESSION: NO SIGNIFICANT RADIOGRAPHIC FINDING IN THE CHEST. Assessment & Plan - Diagnosis (1) New onset atrial fibrillation Is this a current diagnosis for this admission?: Yes (2) Aortic stenosis Qualifiers: Cardiac valve disease etiology: etiology unspecified Qualified Code(s): I35.0 - Nonrheumatic aortic (valve) stenosis Is this a current diagnosis for this admission?: Yes (3) Chest pain Qualifiers: Chest pain type: other chest pain Qualified Code(s): R07.89 - Other chest pain; R07.8 - Other chest pain Is this a current diagnosis for this admission?: Yes (4) Hyperlipidemia Qualifiers: Hyperlipidemia type: unspecified Qualified Code(s): E78.5 - Hyperlipidemia , unspecified Is this a current diagnosis for this admission?: Yes (5) Hypertension Qualifiers: Hypertension type: essential hypertension Qualified Code(s): I10 - Essential (primary) hypertension Is this a current diagnosis for this admission?: Yes - Notes Notes: Atrial fibrillation with RVR: Presumably new onset. At this point will recommend rate control and chronic anticoagulation. Recommend rate control with beta-tico and Cardizem. Will order a 2D echo. Will repeat EKGs in the morning. Aortic stenosis: To be evaluated by a 2D echocardiogram. Clinically does not seem significant at this point. Chest pain: Possibly precipitated by atrial fibrillation with rapid ventricular response. Currently chest pain-free. Recommend treating with aspirin, total anticoagulation, beta-blockers, statin. Further ischemia evaluation at a later date. Hyperlipidemia: Continue high potency statin therapy. Hypertension: Blood pressure under reasonable control. Blood pressure goal should be 140/90 or less. - Time Time Spent: 30 to 50 Minutes - CODE STATUS was discussed, patient remains full code. Surrogate decision-maker unchanged. Multiple medical problems were addressed. More than 50% of the time spent coordinating care, discussing management plans with involved caregivers. Management plans discussed with involved personnels. Medical decision making was of moderate to high complexity , patient's has multiple comorbidities. Medications reviewed and adjusted accordingly: Yes
[2017-10-22 04:40] LABS: HEMATOCRIT 37.3 % (36.0-47.0); HEMOGLOBIN 12.9 g/dL (12.0-15.5); MEAN CORPUSCULAR HEMOGLOBIN 30.4 pg (27.0-33.4); MEAN CORPUSCULAR HGB CONC 34.7 g/dL (32.0-36.0); MEAN CORPUSCULAR VOLUME 88 fl (80-97); PLATELET COUNT 237 10^3/uL (150-450); RED BLOOD COUNT 4.25 10^6/uL (3.72-5.28); RED CELL DISTRIBUTION WIDTH 13.3 % (11.5-14.0); WHITE BLOOD COUNT 7.4 10^3/uL (4.0-10.5)
[2017-10-22 04:49] LABS: ANION GAP 9 (5-19); BLOOD UREA NITROGEN 19 mg/dL (7-20); CALCIUM 9.4 mg/dL (8.4-10.2); CARBON DIOXIDE 30 mmol/L (22-30); CHLORIDE 105 mmol/L (98-107); GLUCOSE 110 mg/dL (75-110); POTASSIUM 4.4 mmol/L (3.6-5.0); SODIUM 143.5 mmol/L (137-145)
[2017-10-22] MEDS ORDERED: LANSOPRAZOLE 30 MG TAB.RAP.DR PO SCH (06:00)
--- NOTE | 2017-10-22 09:06 | EKG REPORT ---
SEVERITY:- NORMAL ECG - SINUS RHYTHM : Confirmed by: Doug Whiteside 22-Oct-2017 09:05:59
[2017-10-22] MEDS ORDERED: ALLOPURINOL 100 MG TABLET PO SCH (10:00)
[2017-10-22] MEDS ORDERED: (PENDING PHARMACY ID) (Lutein [Lutein] 20 MG) PO SCH (10:00)
--- NOTE | 2017-10-22 10:59 | EKG REPORT ---
SEVERITY:- ABNORMAL ECG - ATRIAL FIBRILLATION, V-RATE 85-132 : Confirmed on behalf of: Betty Boykin MD 22-Oct-2017 10:58:40
[2017-10-22] MEDS: APIXABAN 5 MG TABLET PO SCH (11:39)
[2017-10-22] MEDS ORDERED: REGADENOSON INJ 0.4 MG/5 ML DISP.SYRIN IV ONE (12:43)
--- NOTE | 2017-10-22 14:12 | PDOC DISCHARGE SUMMARY ---
General - Admit/Disc Date/PCP Admission Date/Primary Care Provider: 10/21/17 15:23 SHADI POOLE MD Discharge Date: 10/22/17 - Discharge Diagnosis (1) Chest pain Is this a current diagnosis for this admission?: Yes Summary: 3 sets of cardiac enzymes are negative, no EKG changes and nuclear cardiac stress test is negative. Most probably noncardiac chest pain (2) New onset atrial fibrillation Is this a current diagnosis for this admission?: Yes (3) Hypertension Is this a current diagnosis for this admission?: Yes (4) Hyperlipidemia Is this a current diagnosis for this admission?: Yes (5) Gout Is this a current diagnosis for this admission?: Yes (6) Aortic stenosis Is this a current diagnosis for this admission?: Yes - Additional Information Resuscitation Status: Full Code Home Medications: Allopurinol [Zyloprim 100 mg Tablet] 2 tab PO DAILY 10/21/17 Aspirin [Adult Low Dose Aspirin EC] 81 mg PO QHS 10/21/17 Chlorthalidone [Chlorthalidone 25 mg Tablet] 12.5 mg PO QAM 10/21/17 Ezetimibe [Zetia 10 mg Tablet] 10 mg PO QHS 10/21/17 Levothyroxine Sodium [Synthroid] 88 mcg PO Q6AM 10/21/17 Lisinopril [Zestril] 10 mg PO QHS 10/21/17 Lutein 20 mg PO DAILY 10/21/17 Rosuvastatin Calcium [Crestor 5 mg Tablet] 5 mg PO QHS 10/21/17 History of Present Illness History of Present Illness: KIERAN US is a 72 year old female patient with past medical history of aortic stenosis, hypertension, hyperlipidemia, hypothyroidism and gout, presents with chief complaint of chest pain. Patient states she has been in her usual baseline state of up until this morning while she was attending mormon ceremony started to have sudden onset chest pain described as substernal tightness which is nonradiating and about 7 out of 10 on pain scale. She has associated palpitation but she denied any shortness of breath or diaphoresis. At ER her EKG revealed atrial fibrillation with heart rate of 102. When I see her her heart rate is 97. Patient denies any chills, fever, cough, nausea, vomiting, abdominal pain, diarrhea or urinary complaints. She endorses dizziness but no syncope, blurring of vision or any seizure activity. RADHA- VASC score is 3 so patient qualifies for anticoagulation. Hospital Course Hospital Course: This is 72 years old female patient admitted yesterday with chief complaint of chest tightness and also patient found to be in A. fib with RVR. Since patient has multiple risk factors for acute coronary syndrome she is admitted and we will trend her cardiac enzymes which are negative and the EKG is not revealing. This morning she subjected to cardiac stress test and thyroid negative. I will discharge her with metoprolol succinate 25 mg p.o. daily and Eliquis 5 mg p.o. twice daily and follow-up with Dr. Murrieta in 1 week. Physical Exam Vital Signs: Temp Pulse Resp BP Pulse Ox 98.1 F 81 22 H 129/67 H 99 10/22/17 11:36 10/22/17 11:36 10/22/17 11:36 10/22/17 11:36 10/22/17 11:36 General appearance: PRESENT: no acute distress, well-developed, well-nourished Head exam: PRESENT: atraumatic, normocephalic Eye exam: PRESENT: conjunctiva pink, EOMI, PERRLA. ABSENT: scleral icterus Ear exam: PRESENT: normal external ear exam Mouth exam: PRESENT: moist, tongue midline Neck exam: ABSENT: carotid bruit, JVD, lymphadenopathy, thyromegaly Respiratory exam: PRESENT: clear to auscultation merle. ABSENT: rales, rhonchi, wheezes Cardiovascular exam: PRESENT: RRR, systolic murmur. ABSENT: rubs Pulses: PRESENT: normal dorsalis pedis pul Vascular exam: PRESENT: normal capillary refill GI/Abdominal exam: PRESENT: normal bowel sounds, soft. ABSENT: distended, guarding, mass, organolmegaly, rebound, tenderness Rectal exam: PRESENT: deferred Extremities exam: PRESENT: full ROM. ABSENT: calf tenderness, clubbing, pedal edema Neurological exam: PRESENT: alert, awake, oriented to person, oriented to place , oriented to time, oriented to situation, CN II-XII grossly intact. ABSENT: motor sensory deficit Psychiatric exam: PRESENT: appropriate affect, normal mood. ABSENT: homicidal ideation, suicidal ideation Skin exam: PRESENT: dry, intact, warm. ABSENT: cyanosis, rash Results Laboratory Results: 10/22/17 03:45 10/22/17 03:45 10/22/17 10/22/17 10/22/17 03:45 03:45 03:45 WBC 7.4 RBC 4.25 Hgb 12.9 Hct 37.3 MCV 88 MCH 30.4 MCHC 34.7 RDW 13.3 Plt Count 237 Sodium 143.5 Potassium 4.4 Chloride 105 Carbon Dioxide 30 Anion Gap 9 BUN 19 Creatinine 0.94 Est GFR ( Amer) > 60 Est GFR (Non-Af Amer) 59 L Glucose 110 Calcium 9.4 TSH 3.41 10/21/17 10/21/17 10/22/17 16:00 22:50 03:45 Troponin I 0.024 0.023 0.021 Impressions: Chest X-Ray 10/21/17 12:42 IMPRESSION: NO SIGNIFICANT RADIOGRAPHIC FINDING IN THE CHEST. Qualifiers - * PATIENT BEING DISCHARGED WITH ANY OF THE FOLLOWING DIAGNOSIS: No
[2017-10-22 15:20] VITALS: BP 114/68
[2017-10-22] MEDS ORDERED: APIXABAN 5 MG TABLET PO ONE (16:30)
--- NOTE | 2017-10-22 21:20 | PROGRESS NOTE E ---
Progress Note NAME: KIERAN US : 1945 AGE: 72Y DATE: 10/22/2017 ROOM: 532 SUBJECTIVE: This is a followup of paroxysmal atrial fibrillation with rapid ventricular response with conversion to sinus rhythm. The patient denies any chest pain or discomfort. She remains in sinus rhythm. There is no recurrence of atrial fibrillation. There is no PND, orthopnea, shortness of breath. There is no dizziness, syncope or near syncope. There is no bleeding on Eliquis. There are no TIA or CVA symptoms. There is no leg edema. There is no PND or orthopnea. OBJECTIVE: GENERAL: On examination, the patient is mildly obese but well groomed, in no acute distress. VITAL SIGNS: She is afebrile with a temperature of 98.1 degrees Fahrenheit, pulse is 81 beats per minute, blood pressure 129/67, respirations are 20 per minute, O2 saturations are 99% on room air. HEENT: Head is atraumatic, normocephalic. Eyes: Pupils are equal, round, regular, reactive to light and accommodation. Extraocular movements are normal. There is no conjunctival pallor. There is no scleral icterus. ENT is negative. NECK: Supple. There is no JVD. Carotids are equal. There is a transmitted murmur from the aortic area but there is no carotid delay. There is no carotid bruit. There is no lymphadenopathy. There is no goiter. Trachea central. LUNGS: Clear to auscultation and percussion without any rhonchi, rales or wheezing. There is no chest wall tenderness. HEART: S1 and S2 are heard. There is no S3 gallop. There is no S4 gallop. There is a systolic murmur of mild aortic stenosis present with preserved A2 sound. There is no carotid delay. There is no rub. ABDOMEN: Soft, mildly obese, nontender. There is no hepatosplenomegaly. Bowel sounds are well heard. There are no tender areas or masses. EXTREMITIES: Femorals are well felt. There are no femoral bruits. Leg pulses are well felt. There is no pedal edema. There is no DVT or cellulitis. There is no calf tenderness. There is no cyanosis or clubbing. CENTRAL NERVOUS SYSTEM: The patient is conscious, awake, alert, oriented x3 with no focal deficit. LABORATORY DATA: The patient's white count is 7400; hemoglobin is 12.9; hematocrit is 37.3; platelet count is 237,000. The patient's antinuclear antibody is positive, done on 07/02/14. The patient's anti-ssDNA IgG antibody is 34. Her rheumatoid factor is negative. These were tests from 2014. The patient's sodium is 143.4, potassium is 4.4, chloride is 105, CO2 is 30; the patient's BUN is 90, creatinine is 0.94, GFR is mildly reduced at 59 mL. The patient's troponin I cardiac enzymes have been negative x4. DIAGNOSTIC STUDIES: The patient's EKG shows sinus rhythm within normal limits. The patient had an IV Lexiscan Cardiolite stress test which was uneventful. The patient had no chest pain. There were no EKG changes induced via Lexiscan. IMAGING STUDIES: A review of the Cardiolite nuclear imaging shows normal perfusion without any evidence of reversible ischemia or *------* TN. IMPRESSION: 1. PAROXYSMAL ATRIAL FIBRILLATION, CONVERTED TO SINUS RHYTHM. 2. HYPERTENSION. 3. HYPOTHYROIDISM. 4. CHEST PAIN, MOST LIKELY SECONDARY TO ATRIAL FIBRILLATION IN PATIENT WITH AORTIC STENOSIS. 5. AORTIC STENOSIS, NOT HEMODYNAMICALLY SIGNIFICANT. 6. HYPERLIPIDEMIA. RECOMMENDATION: Note that the patient's CHADSVASC2 score is 3 and hence, the patient is on chronic anticoagulation therapy. The result of the stress test was discussed with the patient. Her medications have been reviewed. We will add Toprol XL 25 mg p.o. daily along with her current regimen and also continue the patient on aspirin 81 mg p.o. daily. We will also continue the patient's Eliquis. Continue her other medications. Note: Medical decision making is of moderate complexity. CODE STATUS: The patient is a FULL CODE. Her is the surrogate healthcare decision maker. As an outpatient, we will get an echocardiogram to assess the exact severity of the aortic stenosis, although clinically, it seems to be not very significant. Also, we will get a 30-day event monitor on the patient. TIME SPENT: Note: 40 minutes spent on this patient with more than 50% of the time spent on direct patient care. DISPOSITION: The patient will be followed up by me in the office. I will sign off the case. Discussed with the hospitalist taking care of the patient. Her stress test results were discussed with the patient and the patient's family at the request of the patient. All questions answered. DICTATING PHYSICIAN: JENNIFER MEEHAN M.D. [id number] PHY#: [id number] ID: [id number] JOB#: [id number] ACCT: [id number] cc: >
[2017-10-22] MEDS ORDERED: ATORVASTATIN CALCIUM 10 MG TABLET PO SCH (22:00)
[2017-10-22] MEDS ORDERED: ASPIRIN 81 MG TABLET, ENT COATED PO SCH (22:00)
[2017-10-22] MEDS ORDERED: LISINOPRIL 10 MG TABLET PO SCH (22:00)
[2017-10-22] MEDS ORDERED: EZETIMIBE 10 MG TABLET PO SCH (22:00)
[2017-10-22] MEDS ORDERED: (PENDING PHARMACY ID) (Rosuvastatin Calcium [Crestor 5 Mg Tablet] 5 MG) PO SCH (22:00)
[2017-10-23] MEDS ORDERED: LEVOTHYROXINE SODIUM 0.088 MG TABLET PO SCH (06:00)
[2017-10-23] MEDS ORDERED: CHLORTHALIDONE 25 MG TABLET PO SCH (08:00)
--- NOTE | 2017-10-23 14:07 | DRAGON STRESS TEST REPORT ---
Intravenous Lexiscan Cardiolite stress test using single photon emmision computerized tomography. Date of procedure: 10/22/2017. Ordering Provider: Dr. Ramachandran. Patient's status: In Patient. Indication: Chest pain and paroxysmal atrial fibrillation. Coronary risk factors: Age, hypertension, and dyslipidemia. Resting EKG: Sinus Rhythm. Within Normal Limits. Stress EKG: No changes of ischemia. The patient had no chest pain or discomfort, and there were no arrhythmias seen. Reason for termination: Protocol. Conclusions: Normal EKG and hemodynamic response to IV Lexiscan. Nuclear data: At rest the patient was 9.64 given millicuries of technetium 99m sestamibi injected intravenously. As per protocol rest non gated SPECT images were obtained. Subsequently the patient was given intravenous Lexiscan at a dose of 0.4 mg in 5 mL intravenously, followed by flush with normal saline. Subsequently the stress dose of 30.7 millicuries of technetium 99m sestamibi was injected intravenously. As per protocol stress gated images were obtained. Nuclear interpretation: Review of images showed that all segments of the myocardium had normal perfusion at rest, and normal perfusion post stress with IV Lexiscan. All segments of the myocardium had normal motion, contraction, and thickening by gated study. T. I D. ratio was normal at 1.21. Visually this value seem to be much less. Computer read rest, and stress left ventricular ejection fraction were 64 %, and 63 %, respectively. Conclusion: 1. There is no scintigraphic evidence of Lexiscan induced myocardial ischemia. 2. There is no scintigraphic evidence of myocardial infarction/scar. Recommendations: Aggressive risk factor modification, and treating the underlying co- morbidities. MTDD
== END 2017-10-22 16:00 | disposition home or self-care (01) | DRG 310 ==
LOC: ER 12:20 → EH 15:23 → 5 22:18
PROVIDERS: ADMIT Internal Medicine; ATTEND Internal Medicine
DX: I48.0 Paroxysmal atrial fibrillation (principal); I10 Essential (primary) hypertension; E78.00 Pure hypercholesterolemia, unspecified; M10.9 Gout, unspecified; I35.0 Nonrheumatic aortic (valve) stenosis; R07.89 Other chest pain; E03.9 Hypothyroidism, unspecified; K58.0 Irritable bowel syndrome with diarrhea; E66.9 Obesity, unspecified; Z68.39 Body mass index [BMI] 39.0-39.9, adult; Z79.899 Other long term (current) drug therapy; Z79.82 Long term (current) use of aspirin; Z91.040 Latex allergy status; Z88.6 Allergy status to analgesic agent; Z88.0 Allergy status to penicillin; Z82.61 Family history of arthritis; Z82.49 Family history of ischemic heart disease and other diseases of the circulatory system
CPT/HCPCS: 36415; 71045; 78452; 80048; 80053; 82550; 82553; 84443; 84484; 85025; 85027; 85610; 93005; 93010; 93017; 99285; A9500; J2785

== ENCOUNTER 2017-11-01 20:41 | Emergency (ER) | payer MEDICARE ==
[2017-11-01] MEDS ORDERED: ASPIRIN 81 MG TABLET, CHEWABLE PO ONE (20:43)
--- NOTE | 2017-11-01 21:43 | RADIOLOGY REPORT (SQ) ---
EXAM DESCRIPTION: CHEST SINGLE VIEW COMPLETED DATE/TIME: 11/01/2017 8:59 pm REASON FOR STUDY: cp COMPARISON: 10/21/2017 EXAM PARAMETERS: NUMBER OF VIEWS: One view. TECHNIQUE: Single frontal radiographic view of the chest acquired. RADIATION DOSE: NA LIMITATIONS: None. FINDINGS: LUNGS AND PLEURA: No opacities, masses or pneumothorax. No pleural effusion. MEDIASTINUM AND HILAR STRUCTURES: No masses. Contour normal. HEART AND VASCULAR STRUCTURES: Heart normal in size. Normal vasculature. BONES: No acute findings. HARDWARE: None in the chest. OTHER: No other significant finding. IMPRESSION: NO ACUTE RADIOGRAPHIC FINDING IN THE CHEST. TECHNICAL DOCUMENTATION: JOB ID: [id number] [employer]- All Rights Reserved Reading location - IP/workstation name: [email or web address]
--- NOTE | 2017-11-01 21:56 | ER Document Report ---
ED Cardiac - General Mode of Arrival: Medic Information source: Patient TRAVEL OUTSIDE OF THE [place] IN LAST 30 DAYS: No <DESMOND PATEL - Last Filed: 11/02/17 04:29> <LALO ESCOBEDO - Last Filed: 11/02/17 04:32> - General Chief Complaint: Chest Pain Stated Complaint: CHEST PAIN Time Seen by Provider: 11/01/17 21:39 Notes: 72 y.o female with a PMHx of aortic stenosis, hypertension, hyperlipidemia, hypothyroidism, gout and a recent diagnoses of Afib for with she takes 25mg Toprol and 2.5mg Eliquis presents to the ED via EMS with CP and cough of onset today. Pt describes her pain as a tightness and reports that she has been having CP with deep breaths, a lot of burping and coughing today for which she took two Tums without any relief. She reports that she has been well since her diagnosis of Afib except for a couple of days ago she was feeling weak and clammy but without any CP. Pt denies any hx of OK. (DESMOND PATEL) - Related Data Allergies/Adverse Reactions: latex Allergy (Intermediate, Verified 10/21/17 12:33) Hives adhesive tape [Adhesive Tape] Allergy (Verified 10/21/17 12:33) Hives oxycodone HCl [From Percocet] Allergy (Verified 10/21/17 12:33) Generalized Itching amoxicillin Adverse Reaction (Verified 10/21/17 12:33) Hives Past Medical History - General Information source: Patient - Social History Smoking Status: Never Smoker Chew tobacco use (# tins/day): No Frequency of alcohol use: None Drug Abuse: None Family History: Reviewed & Not Pertinent Patient has suicidal ideation: No Patient has homicidal ideation: No - Past Medical History Cardiac Medical History: Reports: Hx Atrial Fibrillation, Hx Hypercholesterolemia, Hx Hypertension Renal/ Medical History: Denies: Hx Peritoneal Dialysis Past Surgical History: Reports: Hx Appendectomy, Hx Section, Hx Cholecystectomy, Hx Nose Surgery - Immunizations Hx Pneumococcal Vaccination: 03/26/17 <DESMOND PATEL - Last Filed: 11/02/17 04:29> Review of Systems - Review of Systems Constitutional: No symptoms reported EENT: No symptoms reported Cardiovascular: See HPI, Chest pain Respiratory: See HPI, Cough, Hurts to breathe Gastrointestinal: No symptoms reported Genitourinary: No symptoms reported Female Genitourinary: No symptoms reported Musculoskeletal: No symptoms reported Skin: No symptoms reported Hematologic/Lymphatic: No symptoms reported Neurological/Psychological: No symptoms reported -: Yes All other systems reviewed and negative <DESMOND PATEL - Last Filed: 11/02/17 04:29> Physical Exam <DESMOND PATEL - Last Filed: 11/02/17 04:29> <LALO ESCOBEDO - Last Filed: 11/02/17 04:32> - Vital signs Vitals: Pulse Ox 94 11/01/17 20:43 - Notes Notes: PHYSICAL EXAM GENERAL: Alert, interacts well. No acute distress. HEAD: Normocephalic, atraumatic. EYES: Pupils equal, round, and reactive to light. Extraocular movements intact. ENT: Oral mucosa moist, tongue midline. NECK: Full range of motion. Supple. Trachea midline. LUNGS: No wheezes, rales, or rhonchi. Crackles particularly to the RT lower lung. No respiratory distress. HEART: irregularly irregular rate and rhythm with ild tachycardia. No murmurs, gallops, or rubs. ABDOMEN: Soft, non-tender. Non-distended. Bowel sounds present in all 4 quadrants. No guarding, rebound, or rigidity. EXTREMITIES: Moves all 4 extremities spontaneously. No edema. No cyanosis. NEUROLOGICAL: Alert and oriented x3. Normal speech. PSYCH: Normal affect, normal mood. SKIN: Warm, dry, normal turgor. No rashes or lesions noted. (DESMOND PATEL) Course - Laboratory Result Diagrams: 11/01/17 21:26 11/01/17 21:26 <DESMOND PATEL - Last Filed: 11/02/17 04:29> - Laboratory Result Diagrams: 11/01/17 21:26 11/01/17 21:26 <LALO ESCOBEDO - Last Filed: 11/02/17 04:32> - Re-evaluation Re-evalutation: 11/02/17 02:55 CBC shows leukocytosis 11.2, no anemia, coags normal, CMP grossly unremarkable, cardiac enzymes negative 2 despite ongoing chest pain. Initial chest x-ray ordered and does not show any pneumonia or pneumo thorax. EKG is nonischemic but it does show A. fib RVR. CT angiogram of the chest was ordered looking for possible occult pneumonia or pulmonary embolism and this was negative with the exception of a small pleural effusion pericardial effusion. After discussing with Dr. Boykin the patient's fast foods worker he requested that I order a CRP which was normal at 8.1 and ESR which was elevated at 44. Patient's pain was unchanged with nitroglycerin. We did give a second dose of Cardizem here bolused at 20 mg and started a drip at 5. Despite this the patient is still not well rate controlled heart rate ranges between the 120s and 140s, blood pressure is now 96/52. Patient is somewhat hypoxic and I do not know exactly why. Oxygen has been started. A breathing treatment will be given to see if this improves her oxygenation. No indication for antibiotics at this time. Patient has been hydrated, no indication of heart failure at this time. I did discuss the patient with Dr. Boykin again and at this point we both believe that the patient may end up needing a cardioversion given the continued hypotension and lack of rate control in this patient, in order to get this she will need a NATTY first. Family requests to be transferred to [facility] for the tertiary center. I discussed the patient with Dr. Brown and he accepts the patient to his service at [facility]. Does not request any other medications at this time. Patient's last dose of Eliquis was this evening in the hospital. 11/02/17 04:30 Patient has to have a Cardizem drip to control her heart rate however there is no critical care transport truck available for over 4 hours, patient will have to be transported via air due to inappropriately long delay in transport should we use ALS ground. Patient would likely have to wait for at least 8 hours for transport. (LALO ESCOBEDO) - Vital Signs Vital signs: Temp Pulse Resp BP Pulse Ox 30 H 96/51 L 90 L 11/02/17 03:01 11/02/17 03:01 11/02/17 03:01 - Laboratory Laboratory results interpreted by me: 11/01/17 11/01/17 11/01/17 21:26 21:26 21:26 WBC 11.2 H Absolute Neutrophils 8.4 H ESR 44 H Glucose 127 H - EKG Interpretation by Me Additional EKG results interpreted by me: 11/02/17 02:57 EKG shows atrial fibrillation with rapid ventricular response, rate of 120, no ST segment elevations or depressions, there is some nonspecific T-wave flattening but there is no T-wave inversions per my interpretation. (LALO ESCOBEDO) Critical Care Note - Critical Care Note Total time excluding time spent on procedures (mins): 45 <LALO ESCOBEDO - Last Filed: 11/02/17 04:32> Discharge <DESMOND PATEL - Last Filed: 11/02/17 04:29> <LALO ESCOBEDO - Last Filed: 11/02/17 04:32> - Discharge Clinical Impression: Atrial fibrillation with RVR, Hypoxia Condition: Poor Disposition: [facility] Referrals: SHADI POOLE MD [Primary Care Provider] - Follow up as needed Scribe Attestation: 11/02/17 04:31 I personally performed the services described in the documentation, reviewed and edited the documentation which was dictated to the scribe in my presence, and it accurately records my words and actions. (LALO ESCOBEDO) Scribe Documentation - Scribe Written by Saroj:: Saroj Carranza 11/01/17 2158 acting as scribe for :: Taco <DESMOND PATEL - Last Filed: 11/02/17 04:29>
[2017-11-01 22:05] LABS: ABSOLUTE EOSINOPHILS # (AUTO) 0.1 10^3/uL (0.0-0.6); ABSOLUTE LYMPHOCYTES (AUTO) 1.7 10^3/uL (0.5-4.7); ABSOLUTE MONOCYTES (AUTO) 0.9 10^3/uL (0.1-1.4); ABSOLUTE NEUT (AUTO) 8.4 10^3/uL (1.7-8.2); BASOPHILS % (AUTO) 0.3 % (0-2); EOSINOPHILS % (AUTO) 1.1 % (0-6); HEMATOCRIT 36.6 % (36.0-47.0); HEMOGLOBIN 12.4 g/dL (12.0-15.5); LYMPHOCYTES % (AUTO) 15.4 % (13-45); MEAN CORPUSCULAR HEMOGLOBIN 29.9 pg (27.0-33.4); MEAN CORPUSCULAR HGB CONC 33.8 g/dL (32.0-36.0); MEAN CORPUSCULAR VOLUME 88 fl (80-97); MONOCYTES % (AUTO) 8.2 % (3-13); PLATELET COUNT 225 10^3/uL (150-450); RED BLOOD COUNT 4.14 10^6/uL (3.72-5.28); RED CELL DISTRIBUTION WIDTH 13.1 % (11.5-14.0); TOTAL CELLS COUNTED % (AUTO) 100 %; WHITE BLOOD COUNT 11.2 10^3/uL (4.0-10.5)
[2017-11-01 22:13] LABS: INTERNATIONAL RATION (INR) 0.98; PROTHROMBIN TIME 13.5 SEC (11.4-15.4)
[2017-11-01] MEDS ORDERED: APIXABAN 2.5 MG TABLET PO ONE (22:18)
[2017-11-01 22:24] LABS: PARTIAL THROMBOPLASTIN TIME 34.3 SEC (23.5-35.8)
[2017-11-01 22:31] LABS: ALANINE AMINOTRANSFERASE 35 U/L (9-52); ALKALINE PHOSPHATASE 69 U/L (38-126); ANION GAP 15 (5-19); ASPARTATE AMINO TRANSFERASE 22 U/L (14-36); BILIRUBIN,DIRECT 0.2 mg/dL (0.0-0.4); BILIRUBIN,TOTAL 0.6 mg/dL (0.2-1.3); BLOOD UREA NITROGEN 18 mg/dL (7-20); CALCIUM 9.5 mg/dL (8.4-10.2); CARBON DIOXIDE 24 mmol/L (22-30); CHLORIDE 102 mmol/L (98-107); CREATINE KINASE 42 U/L (30-135); GLUCOSE 127 mg/dL (75-110); POTASSIUM 3.7 mmol/L (3.6-5.0); SODIUM 141.1 mmol/L (137-145); TOTAL PROTEIN 6.9 g/dL (6.3-8.2)
[2017-11-01 22:47] LABS: TROPONIN I < 0.012 ng/mL
[2017-11-01] MEDS ORDERED: NITROGLYCERIN 2% OINTMENT 1 GM PACKET TP ONE (23:05)
[2017-11-01] MEDS ORDERED: DILTIAZEM HCL INJ 25 MG/5 ML VIAL IV ONE (23:11)
[2017-11-01] MEDS ORDERED: NORMAL SALINE 1000 ML 1,000 ML IV ONE (23:11)
[2017-11-01] MEDS ORDERED: ONDANSETRON HCL INJ/PF 4 MG/2 ML SDV IV ONE (23:12)
[2017-11-01] MEDS ORDERED: ONDANSETRON HCL INJ/PF 4 MG/2 ML SDV ONE (23:14)
--- NOTE | 2017-11-01 23:39 | EKG REPORT ---
SEVERITY:- ABNORMAL ECG - ATRIAL FIBRILLATION, V-RATE 82-160 : Confirmed by: Betty Boykin MD 01-Nov-2017 23:38:23
--- NOTE | 2017-11-02 00:21 | RADIOLOGY REPORT (SQ) ---
EXAM DESCRIPTION: CT CHEST ANGIOGRAPHY WITHOUT THEN WITH IV CONTRAST COMPLETED DATE/TME: 11/01/2017 23:13 CLINICAL HISTORY: SOB, tachycardic CREAT 0.81 COMPARISON: None Available. TECHNIQUE: CTA of the chest obtained following the uncomplicated intravenous administration of 99 mL Omnipaque 350. 3-D/MIP reformatted images of the chest available for evaluation. DLP: 874.25 mGycm FINDINGS: Chest: Pulmonary arteries: Contrast bolus is adequate.No filling defects identified in the pulmonary arteries to suggest pulmonary embolus. Thyroid:No abnormalities of the visualized thyroid. Great Vessels:Great vessels have normal anatomic configuration. Thoracic Aorta: Atherosclerotic calcification of the thoracic aorta. Heart: Cardiomegaly. Small pericardial effusion. Coronary artery atherosclerosis. Lymph Nodes:No enlarged mediastinal lymph nodes identified. Esophagus: Small hiatal hernia. Other:No additional findings. Lungs:No alveolar or interstitial airspace opacities identified. Pleura:No pleural effusion or pneumothorax. Trachea/Airways:No abnormalities of the visualized trachea or airways. Bones:No destructive osseous lesions. Endplate spondylosis. Upper Abdomen:Limited images of the upper abdomen demonstrate no definite abnormalities of visualized portions of the liver, pancreas, spleen, adrenal glands, or kidneys. IMPRESSION: 1. No pulmonary embolus identified. 2. Cardiomegaly with coronary artery atherosclerosis. This exam was performed according to our departmental dose-optimization program, which includes automated exposure control, adjustment of the mA and/or kV according to patient size and/or use of iterative reconstruction technique.
[2017-11-02] MEDS ORDERED: DILTIAZEM HCL/D5W 125 MG/125 ML RTUINJ IV PRN (01:46)
[2017-11-02] MEDS ORDERED: ALBUTEROL SULFATE 0.083% NEB 2.5 MG/3 ML AMPUL NEB ONE (02:56)
[2017-11-02 04:06] LABS: FREE T3 3.37 pg/mL (2.77-5.27); FREE T4 (FREE THYROXINE) 1.54 ng/dL (0.78-2.19)
[2017-11-02] MEDS ORDERED: DILTIAZEM HCL INJ 25 MG/5 ML VIAL ONE (04:17)
[2017-11-02 04:19] LABS: THYROID STIMULATING HORMONE 2.33 uIU/mL (0.47-4.68)
[2017-11-02] MEDS ORDERED: MORPHINE SULFATE 10 MG/ML INJ IV ONE (04:28)
[2017-11-02 05:02] VITALS: BP 106/52
== END 2017-11-02 05:25 | disposition short-term general hospital (02) ==
LOC: ER 20:41
DX: I48.91 Unspecified atrial fibrillation (principal); R09.02 Hypoxemia; E78.00 Pure hypercholesterolemia, unspecified; I10 Essential (primary) hypertension; Z90.49 Acquired absence of other specified parts of digestive tract; Z91.040 Latex allergy status; Z88.6 Allergy status to analgesic agent
CPT/HCPCS: 93005; 96376; 94640; 99291; 96361; 96375; 96365; 36415; 84439; 82553; 82550; 84443; 85025; 85652; 85610; 85730; 86140; 80053; 84484; 84481; 83880; 71045; 71275; 93010; A9270 ×2; J3490 ×2; J2270; J2405; J7030

== ENCOUNTER → 2018-04-16 | Outpatient (CLI) | payer MEDICARE, OTHER ==
[2018-04-16 11:02] LABS: ABSOLUTE BASOPHILS # (AUTO) 0.1 10^3/uL (0.0-0.2); ABSOLUTE EOSINOPHILS # (AUTO) 0.1 10^3/uL (0.0-0.6); ABSOLUTE LYMPHOCYTES (AUTO) 1.8 10^3/uL (0.5-4.7); ABSOLUTE MONOCYTES (AUTO) 0.7 10^3/uL (0.1-1.4); ABSOLUTE NEUT (AUTO) 6.2 10^3/uL (1.7-8.2); BASOPHILS % (AUTO) 0.8 % (0-2); EOSINOPHILS % (AUTO) 0.9 % (0-6); HEMOGLOBIN 12.5 g/dL (12.0-15.5); LYMPHOCYTES % (AUTO) 20.5 % (13-45); MEAN CORPUSCULAR HEMOGLOBIN 30.6 pg (27.0-33.4); MEAN CORPUSCULAR HGB CONC 33.9 g/dL (32.0-36.0); MEAN CORPUSCULAR VOLUME 90 fl (80-97); MONOCYTES % (AUTO) 8.2 % (3-13); PLATELET COUNT 469 10^3/uL (150-450); RED CELL DISTRIBUTION WIDTH 14.4 % (11.5-14.0); SEGMENTED NEUTROPHILS % (AUTO) 69.6 % (42-78); TOTAL CELLS COUNTED % (AUTO) 100 %; WHITE BLOOD COUNT 8.9 10^3/uL (4.0-10.5)
[2018-04-16 11:25] LABS: ALANINE AMINOTRANSFERASE 65 U/L (9-52); ALBUMIN 4.3 g/dL (3.5-5.0); ALKALINE PHOSPHATASE 95 U/L (38-126); ANION GAP 10 (5-19); ASPARTATE AMINO TRANSFERASE 50 U/L (14-36); BILIRUBIN,DIRECT 0.2 mg/dL (0.0-0.4); BILIRUBIN,TOTAL 0.8 mg/dL (0.2-1.3); BLOOD UREA NITROGEN 17 mg/dL (7-20); CALCIUM 9.9 mg/dL (8.4-10.2); CARBON DIOXIDE 29 mmol/L (22-30); CHLORIDE 101 mmol/L (98-107); GLUCOSE 99 mg/dL (75-110); POTASSIUM 5.1 mmol/L (3.6-5.0); SODIUM 140.4 mmol/L (137-145); TOTAL PROTEIN 7.5 g/dL (6.3-8.2)
== END ==
LOC: OD 10:20
PROVIDERS: ATTEND Internal Medicine
DX: J18.1 Lobar pneumonia, unspecified organism (principal); E83.42 Hypomagnesemia
CPT/HCPCS: 36415; 80053; 83735; 85025

== ENCOUNTER → 2018-06-27 | Outpatient (CLI) | payer MEDICARE, OTHER ==
[2018-06-27 08:59] LABS: ABSOLUTE BASOPHILS # (AUTO) 0.1 10^3/uL (0.0-0.2); ABSOLUTE EOSINOPHILS # (AUTO) 0.2 10^3/uL (0.0-0.6); ABSOLUTE LYMPHOCYTES (AUTO) 1.7 10^3/uL (0.5-4.7); ABSOLUTE MONOCYTES (AUTO) 0.6 10^3/uL (0.1-1.4); ABSOLUTE NEUT (AUTO) 2.4 10^3/uL (1.7-8.2); BASOPHILS % (AUTO) 1.2 % (0-2); EOSINOPHILS % (AUTO) 3.3 % (0-6); HEMATOCRIT 35.2 % (36.0-47.0); HEMOGLOBIN 12.1 g/dL (12.0-15.5); LYMPHOCYTES % (AUTO) 34.8 % (13-45); MEAN CORPUSCULAR HEMOGLOBIN 30.5 pg (27.0-33.4); MEAN CORPUSCULAR HGB CONC 34.3 g/dL (32.0-36.0); MEAN CORPUSCULAR VOLUME 89 fl (80-97); MONOCYTES % (AUTO) 12.5 % (3-13); PLATELET COUNT 222 10^3/uL (150-450); RED BLOOD COUNT 3.96 10^6/uL (3.72-5.28); RED CELL DISTRIBUTION WIDTH 14.2 % (11.5-14.0); SEGMENTED NEUTROPHILS % (AUTO) 48.2 % (42-78); TOTAL CELLS COUNTED % (AUTO) 100 %; WHITE BLOOD COUNT 4.9 10^3/uL (4.0-10.5)
[2018-06-27 09:24] LABS: ALANINE AMINOTRANSFERASE 33 U/L (9-52); ALBUMIN 3.8 g/dL (3.5-5.0); ALKALINE PHOSPHATASE 69 U/L (38-126); ANION GAP 7 (5-19); ASPARTATE AMINO TRANSFERASE 24 U/L (14-36); BILIRUBIN,DIRECT 0.3 mg/dL (0.0-0.4); BILIRUBIN,TOTAL 0.6 mg/dL (0.2-1.3); BLOOD UREA NITROGEN 21 mg/dL (7-20); CALCIUM 9.5 mg/dL (8.4-10.2); CARBON DIOXIDE 30 mmol/L (22-30); CHLORIDE 105 mmol/L (98-107); CHOLESTEROL 182.66 mg/dL (0-200); GLUCOSE 94 mg/dL (75-110); SODIUM 142.1 mmol/L (137-145); TOTAL PROTEIN 6.7 g/dL (6.3-8.2); TRIGLYCERIDES 128 mg/dL (<150); URIC ACID 4.6 mg/dL (2.5-7.5)
[2018-06-27 09:35] LABS: DIRECT LDL 117 mg/dL (<100)
[2018-06-27 09:37] LABS: FREE T4 (FREE THYROXINE) 1.64 ng/dL (0.78-2.19)
[2018-06-27 09:51] LABS: THYROID STIMULATING HORMONE 9.1 uIU/mL (0.47-4.68)
== END ==
LOC: OD 08:09
PROVIDERS: ATTEND Internal Medicine
DX: E03.8 Other specified hypothyroidism (principal); I10 Essential (primary) hypertension; R53.83 Other fatigue; E79.0 Hyperuricemia without signs of inflammatory arthritis and tophaceous disease
CPT/HCPCS: 36415; 80053; 80061; 84439; 84443; 84550; 85025

== ENCOUNTER → 2018-08-07 | Outpatient (CLI) | payer MEDICARE, OTHER ==
[2018-08-07 09:53] LABS: ABSOLUTE EOSINOPHILS # (AUTO) 0.1 10^3/uL (0.0-0.6); ABSOLUTE LYMPHOCYTES (AUTO) 1.9 10^3/uL (0.5-4.7); ABSOLUTE MONOCYTES (AUTO) 0.6 10^3/uL (0.1-1.4); ABSOLUTE NEUT (AUTO) 2.8 10^3/uL (1.7-8.2); BASOPHILS % (AUTO) 0.6 % (0-2); EOSINOPHILS % (AUTO) 2.7 % (0-6); HEMATOCRIT 35.2 % (36.0-47.0); HEMOGLOBIN 11.8 g/dL (12.0-15.5); LYMPHOCYTES % (AUTO) 34.2 % (13-45); MEAN CORPUSCULAR HEMOGLOBIN 29.2 pg (27.0-33.4); MEAN CORPUSCULAR HGB CONC 33.5 g/dL (32.0-36.0); MEAN CORPUSCULAR VOLUME 87 fl (80-97); MONOCYTES % (AUTO) 11.4 % (3-13); PLATELET COUNT 213 10^3/uL (150-450); RED BLOOD COUNT 4.03 10^6/uL (3.72-5.28); RED CELL DISTRIBUTION WIDTH 13.4 % (11.5-14.0); SEGMENTED NEUTROPHILS % (AUTO) 51.1 % (42-78); TOTAL CELLS COUNTED % (AUTO) 100 %; WHITE BLOOD COUNT 5.5 10^3/uL (4.0-10.5)
[2018-08-07 10:27] LABS: FREE T4 (FREE THYROXINE) 1.74 ng/dL (0.78-2.19)
[2018-08-07 10:41] LABS: THYROID STIMULATING HORMONE 6.08 uIU/mL (0.47-4.68)
== END ==
LOC: OD 09:16
PROVIDERS: ATTEND Internal Medicine
DX: E03.8 Other specified hypothyroidism (principal); D63.8 Anemia in other chronic diseases classified elsewhere
CPT/HCPCS: 36415; 84439; 84443; 85025

== ENCOUNTER → 2018-10-10 | Outpatient (CLI) | payer MEDICARE, OTHER ==
[2018-10-10 10:53] LABS: ABSOLUTE BASOPHILS # (AUTO) 0.1 10^3/uL (0.0-0.2); ABSOLUTE EOSINOPHILS # (AUTO) 0.1 10^3/uL (0.0-0.6); ABSOLUTE LYMPHOCYTES (AUTO) 1.9 10^3/uL (0.5-4.7); ABSOLUTE MONOCYTES (AUTO) 0.7 10^3/uL (0.1-1.4); ABSOLUTE NEUT (AUTO) 2.9 10^3/uL (1.7-8.2); HEMATOCRIT 38.5 % (36.0-47.0); HEMOGLOBIN 12.6 g/dL (12.0-15.5); LYMPHOCYTES % (AUTO) 33.4 % (13-45); MEAN CORPUSCULAR HEMOGLOBIN 28.5 pg (27.0-33.4); MEAN CORPUSCULAR HGB CONC 32.7 g/dL (32.0-36.0); MEAN CORPUSCULAR VOLUME 87 fl (80-97); MONOCYTES % (AUTO) 12.6 % (3-13); PLATELET COUNT 246 10^3/uL (150-450); RED BLOOD COUNT 4.42 10^6/uL (3.72-5.28); TOTAL CELLS COUNTED % (AUTO) 100 %; WHITE BLOOD COUNT 5.7 10^3/uL (4.0-10.5)
[2018-10-10 11:15] LABS: ALANINE AMINOTRANSFERASE 37 U/L (9-52); ALBUMIN 4.3 g/dL (3.5-5.0); ALKALINE PHOSPHATASE 75 U/L (38-126); ANION GAP 11 (5-19); ASPARTATE AMINO TRANSFERASE 32 U/L (14-36); BILIRUBIN,DIRECT 0.3 mg/dL (0.0-0.4); BILIRUBIN,TOTAL 0.5 mg/dL (0.2-1.3); BLOOD UREA NITROGEN 21 mg/dL (7-20); CALCIUM 9.6 mg/dL (8.4-10.2); CARBON DIOXIDE 29 mmol/L (22-30); CHLORIDE 103 mmol/L (98-107); CHOLESTEROL 240.55 mg/dL (0-200); GLUCOSE 102 mg/dL (75-110); POTASSIUM 4.2 mmol/L (3.6-5.0); SODIUM 142.8 mmol/L (137-145); TOTAL PROTEIN 7.3 g/dL (6.3-8.2); TRIGLYCERIDES 165 mg/dL (<150); URIC ACID 4.7 mg/dL (2.5-7.5)
[2018-10-10 11:28] LABS: DIRECT LDL 145 mg/dL (<100)
[2018-10-10 11:29] LABS: FREE T4 (FREE THYROXINE) 1.89 ng/dL (0.78-2.19)
[2018-10-10 11:43] LABS: THYROID STIMULATING HORMONE 5.71 uIU/mL (0.47-4.68)
== END ==
LOC: OD 09:34
PROVIDERS: ATTEND Internal Medicine
DX: E03.8 Other specified hypothyroidism (principal); E78.2 Mixed hyperlipidemia; E79.0 Hyperuricemia without signs of inflammatory arthritis and tophaceous disease; I10 Essential (primary) hypertension; D63.8 Anemia in other chronic diseases classified elsewhere
CPT/HCPCS: 36415; 80053; 80061; 84439; 84443; 84550; 85025

== ENCOUNTER → 2019-01-09 | Outpatient (CLI) | payer MEDICARE, OTHER ==
[2019-01-09 09:14] LABS: ABSOLUTE BASOPHILS # (AUTO) 0.1 10^3/uL (0.0-0.2); ABSOLUTE EOSINOPHILS # (AUTO) 0.1 10^3/uL (0.0-0.6); ABSOLUTE LYMPHOCYTES (AUTO) 1.7 10^3/uL (0.5-4.7); ABSOLUTE MONOCYTES (AUTO) 0.6 10^3/uL (0.1-1.4); BASOPHILS % (AUTO) 1.1 % (0-2); EOSINOPHILS % (AUTO) 2.1 % (0-6); HEMATOCRIT 38.1 % (36.0-47.0); HEMOGLOBIN 12.7 g/dL (12.0-15.5); LYMPHOCYTES % (AUTO) 31.2 % (13-45); MEAN CORPUSCULAR HEMOGLOBIN 28.7 pg (27.0-33.4); MEAN CORPUSCULAR HGB CONC 33.3 g/dL (32.0-36.0); MEAN CORPUSCULAR VOLUME 86 fl (80-97); MONOCYTES % (AUTO) 11.6 % (3-13); PLATELET COUNT 223 10^3/uL (150-450); RED BLOOD COUNT 4.42 10^6/uL (3.72-5.28); RED CELL DISTRIBUTION WIDTH 14.4 % (11.5-14.0); TOTAL CELLS COUNTED % (AUTO) 100 %; WHITE BLOOD COUNT 5.5 10^3/uL (4.0-10.5)
[2019-01-09 09:52] LABS: ALBUMIN 4.1 g/dL (3.5-5.0); ALKALINE PHOSPHATASE 69 U/L (38-126); ANION GAP 9 (5-19); ASPARTATE AMINO TRANSFERASE 30 U/L (14-36); CARBON DIOXIDE 28 mmol/L (22-30); CHLORIDE 104 mmol/L (98-107); GLUCOSE 102 mg/dL (75-110); POTASSIUM 3.9 mmol/L (3.6-5.0); TOTAL PROTEIN 7.3 g/dL (6.3-8.2)
[2019-01-09 09:55] LABS: BILIRUBIN,DIRECT 0.2 mg/dL (0.0-0.4); BILIRUBIN,TOTAL 0.6 mg/dL (0.2-1.3); BLOOD UREA NITROGEN 20 mg/dL (7-20); CALCIUM 9.7 mg/dL (8.4-10.2); CHOLESTEROL 235.07 mg/dL (0-200); TRIGLYCERIDES 200 mg/dL (<150)
[2019-01-09 10:01] LABS: FREE T4 (FREE THYROXINE) 2.03 ng/dL (0.78-2.19)
[2019-01-09 10:04] LABS: DIRECT LDL 144 mg/dL (<100)
[2019-01-09 10:14] LABS: THYROID STIMULATING HORMONE 3.74 uIU/mL (0.47-4.68)
== END ==
LOC: OD 08:33
PROVIDERS: ATTEND Internal Medicine
DX: I10 Essential (primary) hypertension (principal); D63.8 Anemia in other chronic diseases classified elsewhere; E78.2 Mixed hyperlipidemia; E03.8 Other specified hypothyroidism
CPT/HCPCS: 36415; 80053; 80061; 84439; 84443; 85025

== ENCOUNTER → 2019-05-12 | Outpatient (CLI) | payer MEDICARE, OTHER ==
[2019-05-12 10:57] LABS: ABSOLUTE EOSINOPHILS # (AUTO) 0.1 10^3/uL (0.0-0.6); ABSOLUTE LYMPHOCYTES (AUTO) 1.6 10^3/uL (0.5-4.7); ABSOLUTE MONOCYTES (AUTO) 0.6 10^3/uL (0.1-1.4); BASOPHILS % (AUTO) 0.4 % (0-2); EOSINOPHILS % (AUTO) 2.4 % (0-6); HEMATOCRIT 37.3 % (36.0-47.0); HEMOGLOBIN 12.7 g/dL (12.0-15.5); LYMPHOCYTES % (AUTO) 29.3 % (13-45); MEAN CORPUSCULAR HEMOGLOBIN 30.4 pg (27.0-33.4); MEAN CORPUSCULAR HGB CONC 34.1 g/dL (32.0-36.0); MEAN CORPUSCULAR VOLUME 89 fl (80-97); PLATELET COUNT 213 10^3/uL (150-450); RED BLOOD COUNT 4.19 10^6/uL (3.72-5.28); RED CELL DISTRIBUTION WIDTH 14.4 % (11.5-14.0); SEGMENTED NEUTROPHILS % (AUTO) 55.9 % (42-78); TOTAL CELLS COUNTED % (AUTO) 100 %; WHITE BLOOD COUNT 5.4 10^3/uL (4.0-10.5)
[2019-05-12 11:23] LABS: ALKALINE PHOSPHATASE 66 U/L (38-126); ANION GAP 9 (5-19); ASPARTATE AMINO TRANSFERASE 27 U/L (14-36); BILIRUBIN,TOTAL 0.5 mg/dL (0.2-1.3); BLOOD UREA NITROGEN 19 mg/dL (7-20); CALCIUM 9.4 mg/dL (8.4-10.2); CARBON DIOXIDE 29 mmol/L (22-30); CHLORIDE 103 mmol/L (98-107); CHOLESTEROL 146.38 mg/dL (0-200); GLUCOSE 106 mg/dL (75-110); POTASSIUM 4.2 mmol/L (3.6-5.0); TOTAL PROTEIN 6.9 g/dL (6.3-8.2); TRIGLYCERIDES 95 mg/dL (<150); URIC ACID 4.4 mg/dL (2.5-7.5)
[2019-05-12 11:34] LABS: DIRECT LDL 72 mg/dL (<100)
[2019-05-12 11:38] LABS: FREE T4 (FREE THYROXINE) 1.99 ng/dL (0.78-2.19)
[2019-05-12 11:52] LABS: THYROID STIMULATING HORMONE 1.98 uIU/mL (0.47-4.68)
== END ==
LOC: OD 10:19
PROVIDERS: ATTEND Internal Medicine
DX: I10 Essential (primary) hypertension (principal); D63.8 Anemia in other chronic diseases classified elsewhere; E79.0 Hyperuricemia without signs of inflammatory arthritis and tophaceous disease; E03.8 Other specified hypothyroidism
CPT/HCPCS: 36415; 80053; 80061; 84439; 84443; 84550; 85025

== ENCOUNTER 2019-08-23 09:41 | Emergency (ER) | payer MEDICARE ==
--- NOTE | 2019-08-23 10:02 | ER Document Report ---
ED Medical Screen (RME) - General Chief Complaint: Headache Stated Complaint: HEADACHE Time Seen by Provider: 08/23/19 09:59 Primary Care Provider: JUNE HE PA-C [Primary Care Provider] - Follow up as needed Mode of Arrival: Ambulatory Information source: Patient Notes: 73-year-old female presented to ED for increasing headaches over the last 2 months. She states they have gotten much worse. She went to Dr. Chaudhari's office and the nurse practitioner there sent her to get a CT. She was called by the doctor and told that she had a couple of questionable spots on the brain she needed to come to the emergency room to get further testing as she cannot get an MRI because she has multiple kali from many years ago throughout her body from surgeries. Patient is alert and oriented she is hard of hearing her was speaking for her in the triage area. I have greeted and performed a rapid initial assessment of this patient. A comprehensive ED assessment and evaluation of the patient, analysis of test results and completion of medical decision making process will be conducted by an additional ED providers. TRAVEL OUTSIDE OF THE [place] IN LAST 30 DAYS: No - Related Data Allergies/Adverse Reactions: latex Allergy (Intermediate, Verified 08/23/19 09:54) Hives adhesive tape [Adhesive Tape] Allergy (Verified 08/23/19 09:54) Hives oxycodone HCl [From Percocet] Allergy (Verified 08/23/19 09:54) Generalized Itching amoxicillin Adverse Reaction (Verified 08/23/19 09:54) Hives Past Medical History - Social History Chew tobacco use (# tins/day): No Frequency of alcohol use: None Drug Abuse: None - Past Medical History Cardiac Medical History: Reports: Hx Atrial Fibrillation, Hx Hypercholesterolemia, Hx Hypertension Denies: Hx Heart Attack Pulmonary Medical History: Denies: Hx Asthma Neurological Medical History: Denies: Hx Cerebrovascular Accident, Hx Seizures Renal/ Medical History: Denies: Hx Peritoneal Dialysis GI Medical History: Denies: Hx Hepatitis, Hx Hiatal Hernia, Hx Ulcer Psychiatric Medical History: Denies: Hx Depression Infectious Medical History: Denies: Hx Hepatitis Past Surgical History: Reports: Hx Appendectomy, Hx Section, Hx Cholecystectomy, Hx Nose Surgery. Denies: Hx Hysterectomy, Hx Mastectomy, Hx Open Heart Surgery, Hx Pacemaker Physical Exam - Vital signs Vitals: Temp Pulse Resp BP Pulse Ox 97.8 F 81 18 161/76 H 97 08/23/19 09:52 08/23/19 09:52 08/23/19 09:52 08/23/19 09:52 08/23/19 09:52 Course - Vital Signs Vital signs: Temp Pulse Resp BP Pulse Ox 97.8 F 81 18 161/76 H 97 08/23/19 09:54 08/23/19 09:52 08/23/19 09:52 08/23/19 09:52 08/23/19 09:52 Doctor's Discharge - Discharge Referrals: JUNE HE PA-C [Primary Care Provider] - Follow up as needed
[2019-08-23 10:58] LABS: ABSOLUTE BASOPHILS # (AUTO) 0.1 10^3/uL (0.0-0.2); ABSOLUTE EOSINOPHILS # (AUTO) 0.2 10^3/uL (0.0-0.6); ABSOLUTE LYMPHOCYTES (AUTO) 2.1 10^3/uL (0.5-4.7); ABSOLUTE MONOCYTES (AUTO) 0.9 10^3/uL (0.1-1.4); ABSOLUTE NEUT (AUTO) 4.3 10^3/uL (1.7-8.2); BASOPHILS % (AUTO) 0.8 % (0-2); EOSINOPHILS % (AUTO) 2.6 % (0-6); HEMATOCRIT 35.7 % (36.0-47.0); HEMOGLOBIN 11.7 g/dL (12.0-15.5); LYMPHOCYTES % (AUTO) 28.2 % (13-45); MEAN CORPUSCULAR HEMOGLOBIN 28.7 pg (27.0-33.4); MEAN CORPUSCULAR HGB CONC 32.8 g/dL (32.0-36.0); MEAN CORPUSCULAR VOLUME 88 fl (80-97); MONOCYTES % (AUTO) 11.8 % (3-13); PLATELET COUNT 269 10^3/uL (150-450); RED BLOOD COUNT 4.07 10^6/uL (3.72-5.28); RED CELL DISTRIBUTION WIDTH 13.2 % (11.5-14.0); SEGMENTED NEUTROPHILS % (AUTO) 56.6 % (42-78); TOTAL CELLS COUNTED % (AUTO) 100 %; WHITE BLOOD COUNT 7.5 10^3/uL (4.0-10.5)
[2019-08-23 11:02] LABS: ALBUMIN 4.1 g/dL (3.5-5.0); ALKALINE PHOSPHATASE 73 U/L (38-126); ANION GAP 8 (5-19); ASPARTATE AMINO TRANSFERASE 31 U/L (14-36); BILIRUBIN,TOTAL 0.5 mg/dL (0.2-1.3); BLOOD UREA NITROGEN 17 mg/dL (7-20); CARBON DIOXIDE 29 mmol/L (22-30); CHLORIDE 103 mmol/L (98-107); GLUCOSE 128 mg/dL (75-110); POTASSIUM 4.2 mmol/L (3.6-5.0); TOTAL PROTEIN 7.1 g/dL (6.3-8.2)
[2019-08-23 11:05] LABS: APPEARANCE,URINE CLEAR; BILIRUBIN,URINE NEGATIVE (NEGATIVE); COLOR,URINE YELLOW; GLUCOSE, URINE NEGATIVE (NEGATIVE); KETONES,URINE NEGATIVE (NEGATIVE); LEUKOCYTE ESTERASE,URINE SMALL (NEGATIVE); NITRITE,URINE NEGATIVE (NEGATIVE); PROTEIN,URINE NEGATIVE (NEGATIVE); URINE SPECIFIC GRAVITY 1.014; UROBILINOGEN,URINE NEGATIVE mg/dL (<2.0)
--- NOTE | 2019-08-23 11:13 | ER Document Report ---
ED Headache - General Chief Complaint: Headache Stated Complaint: HEADACHE Time Seen by Provider: 08/23/19 09:59 Primary Care Provider: JUNE HE PA-C [NURSE PRACTITIONER] - Follow up as needed Mode of Arrival: Ambulatory Notes: HPI: 73-year-old female who states a history of chronic headaches with some increased frequency of the last 2 months. She denies any blurry vision, fevers, vomiting, diarrhea, head trauma, weakness or numbness. Patient is on Eliquis. Patient does states she has felt some tinnitus to the right ear for the last month. She states that the headaches are intermittent and she has no associated aggravating relieving factors. She currently has no headache. She had a CT scan on Sunday this past week, 5 days ago by the primary care physician which showed "some spots". She was told to come here to get a CT scan with IV contrast given that she is not able to obtain an MRI secondary to surgical kali in her abdomen from 30 years ago. ROS: See HPI All other review of systems reviewed and otherwise negative Reviewed vital signs and nursing note as charted by RN. PHYSICAL EXAM: CONSTITUTIONAL: Alert and oriented and responds appropriately to questions. Well-appearing; well-nourished HEAD: Normocephalic; atraumatic EYES: PERRL; full extraocular range of motion ENT: Normal nose; no rhinorrhea; moist mucous membranes; TMs clear bilaterally with no erythema or induration. No mastoid tenderness or swelling pharynx without lesions noted NECK: Supple without meningismus; non-tender; no cervical lymphadenopathy, no masses CARD: Regular rate and rhythm; no murmurs; symmetric distal pulses RESP: Normal chest excursion without splinting or tachypnea; breath sounds clear and equal bilaterally; no wheezes, no rhonchi, no rales ABD/GI: Normal bowel sounds; non-distended; soft, non-tender; no palpable organomegaly or masses BACK: The back appears normal and is non-tender to palpation EXT: Normal ROM in all joints; non-tender to palpation; no edema SKIN: No acute lesions noted NEURO: CN 2-12 intact; 5/5 bilateral upper and lower extremity strength with sensation intact to light touch PSYCH: The patient's mood and manner are appropriate. Grooming and personal hygiene are appropriate. TRAVEL OUTSIDE OF THE [place] IN LAST 30 DAYS: No - Related Data Allergies/Adverse Reactions: latex Allergy (Intermediate, Verified 08/23/19 09:54) Hives adhesive tape [Adhesive Tape] Allergy (Verified 08/23/19 09:54) Hives oxycodone HCl [From Percocet] Allergy (Verified 08/23/19 09:54) Generalized Itching amoxicillin Adverse Reaction (Verified 08/23/19 09:54) Hives Past Medical History - General Information source: Patient - Social History Smoking Status: Never Smoker Chew tobacco use (# tins/day): No Frequency of alcohol use: None Drug Abuse: None Family History: Reviewed & Not Pertinent Patient has homicidal ideation: No - Past Medical History Cardiac Medical History: Reports: Hx Atrial Fibrillation, Hx Hypercholesterolemia, Hx Hypertension Denies: Hx Heart Attack Pulmonary Medical History: Denies: Hx Asthma Neurological Medical History: Denies: Hx Cerebrovascular Accident, Hx Seizures Renal/ Medical History: Denies: Hx Peritoneal Dialysis GI Medical History: Denies: Hx Hepatitis, Hx Hiatal Hernia, Hx Ulcer Psychiatric Medical History: Denies: Hx Depression Infectious Medical History: Denies: Hx Hepatitis Past Surgical History: Reports: Hx Appendectomy, Hx Section, Hx Cholecystectomy, Hx Nose Surgery. Denies: Hx Hysterectomy, Hx Mastectomy, Hx Open Heart Surgery, Hx Pacemaker - Immunizations Hx Pneumococcal Vaccination: 03/26/17 Physical Exam - Vital signs Vitals: Temp Pulse Resp BP Pulse Ox 97.8 F 81 18 161/76 H 97 08/23/19 09:52 08/23/19 09:52 08/23/19 09:52 08/23/19 09:52 08/23/19 09:52 Course - Re-evaluation Re-evalutation: 08/23/19 11:12 Given the history and physical examination we will obtain a CT scan of the head with and without contrast as well as basic labs. Patient currently has no headache at this time. No temporal erythema, pressure behind the eyes, blurry vision, or fevers. I do believe bacterial meningitis, temporal arteritis, subarachnoid hemorrhage, or to be extremely unlikely. 08/23/19 12:36 Imaging and labs as recorded. I have spoken to the neuroradiologist directly Dr. Lambert about the findings. She states that this does not appear to be acute in something that the patient has had for many years. She sees no obvious bleeding or extravasation and no mass-effect from the small calcification. She does not believe further imaging is necessary at this particular moment. Patient still has no headache or blurry vision. Still no weakness or numbness. Patient will be discharged home with strict return precautions and follow-up with the patient's primary care physician. - Vital Signs Vital signs: Temp Pulse Resp BP Pulse Ox 97.8 F 81 18 161/76 H 97 08/23/19 09:54 08/23/19 09:52 08/23/19 09:52 08/23/19 09:52 08/23/19 09:52 - Laboratory Result Diagrams: 08/23/19 10:30 08/23/19 10:30 Laboratory results interpreted by me: 08/23/19 08/23/19 08/23/19 10:25 10:30 10:30 Hgb 11.7 L Hct 35.7 L Glucose 128 H Ur Leukocyte Esterase SMALL H Urine Ascorbic Acid 40 H Discharge - Discharge Clinical Impression: Cerebral calcification Headache Qualifiers: Headache type: unspecified Headache chronicity pattern: episodic headache Intractability: not intractable Qualified Code(s): R51 - Headache Condition: Good Disposition: HOME, SELF-CARE Additional Instructions: Come back immediately for any increased headaches, blurry vision, fevers, vomiting, change in mental status, weakness or numbness, or any other acute problems. Please follow-up with your primary care physician as well as possibly a neurology specialist as discussed. Referrals: JUNE HE PA-C [NURSE PRACTITIONER] - Follow up as needed
--- NOTE | 2019-08-23 12:31 | RADIOLOGY REPORT (SQ) ---
EXAM DESCRIPTION: CT HEAD COMBO IMAGES COMPLETED DATE/TIME: 08/23/2019 11:12 am REASON FOR STUDY: sever headache questionable spots on brain. Severe headache, questionable spots o n brain. COMPARISON: CT head, 06/24/2010. TECHNIQUE: Axial images acquired through the brain without and with intravenous contrast. Images re viewed with bone, brain and subdural windows. Additional sagittal and coronal reconstructions were g enerated. Images stored on PACS. All CT scanners at this facility use dose modulation, iterative reconstruction, and/or weight based d osing when appropriate to reduce radiation dose to as low as reasonably achievable (ALARA). [facility]: Dose Right [facility]: CareDose [facility]: Dose Right [facility]: Teradose 4D [facility]: T[employer]ored Games CONTRAST TYPE AND DOSE: contrast/concentration: Isovue 350.00 mg/ml; Total Contrast Delivered: 50.0 ml; Total Saline Delivered: 50.0 ml RENAL FUNCTION: GFR > 60. RADIATION DOSE: CT Rad equipment meets quality standard of care and radiation dose reduction techniq ues were employed. CTDIvol: 53.2 mGy. DLP: 1981 mGy-cm.. LIMITATIONS: None. FINDINGS: VENTRICLES: Normal size and contour. CEREBRUM: No masses. No hemorrhage. No midline shift. There is a small popcorn type calcification in the left posterior parietal subcortical white matter demonstrating no significant surrounding enhanc ement on postcontrast images. 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 The calcification h as developed since 2010. Normal shaw/white matter differentiation. No evidence for acute infarction. No enhancing lesions. CEREBELLUM: No masses. No hemorrhage. No alteration of density. No evidence for acute infarction. No enhancing lesions. EXTRA-AXIAL SPACES: No fluid collections. No enhancing lesions. ORBITS AND GLOBE: No intra- or extraconal masses. Normal contour of globe without masses. CALVARIUM: No fracture. PARANASAL SINUSES: No fluid or mucosal thickening. SOFT TISSUES: No mass or hematoma. OTHER: No other significant finding. IMPRESSION: 1. No acute intracranial hemorrhage, mass, or evidence of acute territorial infarct. 2. 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 MRI may be helpful for further characterization as clinically indicated. EVIDENCE OF ACUTE STROKE: NO. TECHNICAL DOCUMENTATION: JOB ID: [id number] Quality ID # [id number]: Final reports with documentation of one or more dose reduction techniques (e.g., Au tomated exposure control, adjustment of the mA and/or kV according to patient size, use of iterative reconstruction technique) 2010 [employer]- All Rights Reserved Reading location - IP/workstation name: [email or web address]
[2019-08-23 13:58] VITALS: BP 173/72
== END 2019-08-23 13:58 | disposition home or self-care (01) ==
LOC: ER 09:41
DX: G93.89 Other specified disorders of brain (principal); R51 Headache; I48.91 Unspecified atrial fibrillation; E78.00 Pure hypercholesterolemia, unspecified; I10 Essential (primary) hypertension; Z91.040 Latex allergy status; Z88.6 Allergy status to analgesic agent; Z88.0 Allergy status to penicillin; Z90.49 Acquired absence of other specified parts of digestive tract
CPT/HCPCS: 36415; 70470; 80053; 81001; 85025; 99284

== ENCOUNTER → 2019-09-10 | Outpatient (CLI) | payer MEDICARE, OTHER ==
--- NOTE | 2019-09-10 12:15 | WOMENS IMAGING REPORT ---
EXAM DESCRIPTION: BONE DENSITY HIP/SPINE IMAGES COMPLETED DATE/TIME: 09/10/2019 9:00 am REASON FOR STUDY: Z78.0 BONE DENSITY Z12.31 ENCNTR SCREEN MAMMOGRAM FOR MALIGNANT NEOPLASM OF VIVIANA Z 78.0 ASYMPTOMATIC MENOPAUSAL STATE COMPARISON: 01/19/2016 TECHNIQUE: Dual-Energy X-ray Absorptiometry (DEXA) of the AP Spine and Hip. LIMITATIONS: None. FINDINGS: LUMBAR SPINE: The bone mineral density (BMD) measured from L1-L4 in the AP projection correlates with a T-score of -0.2, which is normal as defined by the World Health Organization. BMD Change vs Baseline: 2.3% HIP: The bone mineral density (BMD) measured in the left hip correlates with a T-score of -1.2 in the neck , which is osteopenia as defined by the World Health Organization. BMD Change vs Baseline: 7.5% 10 year Fracture Risk Assessment: Major Osteoporotic Fracture: WITHOUT PRIOR FRACTURE 13%. WITH PRIOR FRACTURE 20%. Hip Fracture: WITHOUT PRIOR FRACTURE 3.0%. WITH PRIOR FRACTURE 4.4% IMPRESSION: 1. LUMBAR SPINE WHO CLASSIFICATION: NORMAL 2. HIP WHO CLASSIFICATION: OSTEOPENIA. OVERALL ASSESSMENT: WHO CLASSIFICATION: OSTEOPENIA. COMMENT: The World Health Organization defines low BMD as follows: T-score: Normal: At or above -1.0 Osteopenia: Between -1.0 and -2.5 Osteoporosis: At or below -2.5 without fractures Established osteoporosis: At or below -2.5 with fractures In general, you may wish to consider: Diagnosis Treatment Follow-up DEXA Normal BMD Prevention 2-3 years Osteopenia Prevention/Therapy 1-2 years Osteoporosis Therapy Yearly TECHNICAL DOCUMENTATION: JOB ID: [id number] [employer]- All Rights Reserved Reading location - IP/workstation name: [email or web address]
--- NOTE | 2019-09-11 07:47 | WOMENS IMAGING REPORT ---
EXAM DESCRIPTION: 3D SCREENING MAMMO BILAT IMAGES COMPLETED DATE/TIME: 09/10/2019 9:00 am REASON FOR STUDY: Z12.31 SCREENING MAMMO Z12.31 ENCNTR SCREEN MAMMOGRAM FOR MALIGNANT NEOPLASM OF B RE Z78.0 ASYMPTOMATIC MENOPAUSAL STATE COMPARISON: 2016, 2017 EXAM PARAMETERS: Views: Standard craniocaudal and mediolateral oblique views of each breast recorded using digital acquisition and breast tomosynthesis. Read with the assistance of CAD. [facility] [employer] Version 9.2 LIMITATIONS: None. FINDINGS: No suspicious masses, suspicious calcifications or architectural distortion. No areas of c oncern. IMPRESSION: NEGATIVE MAMMOGRAM. BIRADS 1. BREAST DENSITY: a. The breasts are almost entirely fatty. BIRAD: ASSESSMENT: 1 NEGATIVE RECOMMENDATION: ROUTINE SCREENING Please continue yearly bilateral screening mammography/tomosynthesis in August 2020 COMMENT: The patient has been notified of the results by letter per MQSA requirements. Additional no tification policies are in place for contacting patient with suspicious or incomplete findings. Quality ID #[id number]: The [employer] recommends an annual screening mammogram for women aged 40 years or over. This facility utilizes a reminder system to ensure that all patients receive reminder letters, and/or direct phone calls for appointments. This includes reminders for routine scr eening mammograms, diagnostic mammograms, or other Breast Imaging Interventions when appropriate. Th is patient will be placed in the appropriate reminder system. TECHNICAL DOCUMENTATION: FINDING NUMBER: (1) ASSESSMENT: (1) JOB ID: [id number] 2010 [employer]- All Rights Reserved Reading location - IP/workstation name: [id number]
== END ==
LOC: WI 08:05
PROVIDERS: ATTEND Physician Assistant
DX: Z12.31 Encounter for screening mammogram for malignant neoplasm of breast (principal); Z78.0 Asymptomatic menopausal state; R51 Headache
CPT/HCPCS: 77063; 77067; 77080

== ENCOUNTER → 2020-01-30 | Outpatient (CLI) | payer MEDICARE ==
[2020-01-30 09:09] LABS: ABSOLUTE BASOPHILS # (AUTO) 0.1 10^3/uL (0.0-0.2); ABSOLUTE EOSINOPHILS # (AUTO) 0.2 10^3/uL (0.0-0.6); ABSOLUTE LYMPHOCYTES (AUTO) 1.3 10^3/uL (0.5-4.7); ABSOLUTE MONOCYTES (AUTO) 0.7 10^3/uL (0.1-1.4); ABSOLUTE NEUT (AUTO) 3.2 10^3/uL (1.7-8.2); BASOPHILS % (AUTO) 1.2 % (0-2); EOSINOPHILS % (AUTO) 3.1 % (0-6); HEMOGLOBIN 9.7 g/dL (12.0-15.5); LYMPHOCYTES % (AUTO) 23.9 % (13-45); MEAN CORPUSCULAR HEMOGLOBIN 23.8 pg (27.0-33.4); MEAN CORPUSCULAR HGB CONC 32.2 g/dL (32.0-36.0); MEAN CORPUSCULAR VOLUME 74 fl (80-97); MONOCYTES % (AUTO) 13.1 % (3-13); PLATELET COUNT 222 10^3/uL (150-450); RED BLOOD COUNT 4.06 10^6/uL (3.72-5.28); RED CELL DISTRIBUTION WIDTH 18.3 % (11.5-14.0); SEGMENTED NEUTROPHILS % (AUTO) 58.7 % (42-78); TOTAL CELLS COUNTED % (AUTO) 100 %; WHITE BLOOD COUNT 5.5 10^3/uL (4.0-10.5)
[2020-01-30 09:36] LABS: ALBUMIN 3.8 g/dL (3.5-5.0); ALKALINE PHOSPHATASE 97 U/L (38-126); ANION GAP 9 (5-19); ASPARTATE AMINO TRANSFERASE 36 U/L (14-36); BILIRUBIN,DIRECT 0.1 mg/dL (0.0-0.4); BILIRUBIN,TOTAL 0.3 mg/dL (0.2-1.3); BLOOD UREA NITROGEN 16 mg/dL (7-20); CALCIUM 9.3 mg/dL (8.4-10.2); CARBON DIOXIDE 30 mmol/L (22-30); CHLORIDE 102 mmol/L (98-107); CHOLESTEROL 180.56 mg/dL (0-200); GLUCOSE 116 mg/dL (75-110); POTASSIUM 3.8 mmol/L (3.6-5.0); TOTAL PROTEIN 6.9 g/dL (6.3-8.2); TRIGLYCERIDES 171 mg/dL (<150)
[2020-01-30 09:48] LABS: DIRECT LDL 105 mg/dL (<100)
[2020-01-30 09:50] LABS: VLDL CHOLESTEROL 34.2 mg/dL (10-31)
[2020-01-30 10:21] LABS: FREE T4 (FREE THYROXINE) 1.77 ng/dL (0.78-2.19)
[2020-01-30 10:35] LABS: THYROID STIMULATING HORMONE 9.13 uIU/mL (0.47-4.68)
== END ==
LOC: OD 08:23
PROVIDERS: ATTEND Internal Medicine
DX: I10 Essential (primary) hypertension (principal); D63.8 Anemia in other chronic diseases classified elsewhere; E78.2 Mixed hyperlipidemia; E03.8 Other specified hypothyroidism
CPT/HCPCS: 36415; 80053; 80061; 84439; 84443; 85025

== ENCOUNTER → 2020-03-10 | Outpatient (CLI) | payer MEDICARE ==
[2020-03-10 11:30] LABS: ABSOLUTE BASOPHILS # (AUTO) 0.1 10^3/uL (0.0-0.2); ABSOLUTE EOSINOPHILS # (AUTO) 0.1 10^3/uL (0.0-0.6); ABSOLUTE LYMPHOCYTES (AUTO) 1.4 10^3/uL (0.5-4.7); ABSOLUTE MONOCYTES (AUTO) 0.7 10^3/uL (0.1-1.4); ABSOLUTE NEUT (AUTO) 3.6 10^3/uL (1.7-8.2); ABSOLUTE RETICS # 0.065 10^6/uL (0.028-0.122); EOSINOPHILS % (AUTO) 2.4 % (0-6); HEMATOCRIT 32.6 % (36.0-47.0); HEMOGLOBIN 10.3 g/dL (12.0-15.5); LYMPHOCYTES % (AUTO) 24.2 % (13-45); MEAN CORPUSCULAR HEMOGLOBIN 23.5 pg (27.0-33.4); MEAN CORPUSCULAR HGB CONC 31.5 g/dL (32.0-36.0); MEAN CORPUSCULAR VOLUME 75 fl (80-97); MONOCYTES % (AUTO) 11.2 % (3-13); PLATELET COUNT 240 10^3/uL (150-450); RED BLOOD COUNT 4.36 10^6/uL (3.72-5.28); RED CELL DISTRIBUTION WIDTH 19.5 % (11.5-14.0); RETICULOCYTE COUNT (AUTO) 1.49 % (0.66-2.85); SEGMENTED NEUTROPHILS % (AUTO) 61.2 % (42-78); TOTAL CELLS COUNTED % (AUTO) 100 %; WHITE BLOOD COUNT 5.9 10^3/uL (4.0-10.5)
[2020-03-10 11:53] LABS: IRON(TIBC) 49.4 ug/dL (37-170)
[2020-03-10 12:07] LABS: FREE T4 (FREE THYROXINE) 1.99 ng/dL (0.78-2.19)
[2020-03-10 12:21] LABS: THYROID STIMULATING HORMONE 5.36 uIU/mL (0.47-4.68)
== END ==
LOC: OD 10:38
PROVIDERS: ATTEND Internal Medicine
DX: E03.8 Other specified hypothyroidism (principal); D50.8 Other iron deficiency anemias
CPT/HCPCS: 36415; 82272; 82728; 83540; 83550; 84439; 84443; 84466; 85025; 85045